=== PATIENT | female | born 1990 | race Caucasian/White ===

== ENCOUNTER 2019-06-22 11:37 | Emergency (ER) | payer OTHER ==
[2019-06-22 11:51] VITALS: TEMP 98
[2019-06-22] MEDS ORDERED: SODIUM CHLORIDE 0.9% 1,000 ML IV ONE (13:32)
[2019-06-22 13:34] LABS: Amorphous Sediment,Urine Few /hpf; Appearance,Urine Turbid (Clear); Bilirubin,Urine Negative (Negative); Blood,Urine Negative (Negative); Color,Urine Yellow; Glucose,Urine (UA) Negative (Negative); Ketones,Urine Negative (Negative); Leukocyte Esterase,Urine Small (Negative); Mucus,Urine Rare /hpf; Nitrite,Urine Negative (Negative); Protein,Urine Negative (Negative); Specific Gravity,Urine 1.018 (1.001-1.035); Squamous Epithelial Cell,Urine 7 /hpf (0-4); Urobilinogen,Urine <2.0 mg/dL (<2.0)
[2019-06-22 14:19] LABS: Basophils # (A) 0.1 k/uL (0-0.2); Basophils % (A) 1 %; Eosinophils # (A) 0.2 k/uL (0-0.7); Eosinophils % (A) 3 %; HCT 39.5 % (34.0-46.0); HGB 13.6 gm/dL (11.4-16.0); Lymphocytes # (A) 1.7 k/uL (1.0-4.8); Lymphocytes % (A) 28 %; MCH 32.6 pg (25.0-35.0); MCHC 34.3 g/dL (31.0-37.0); MCV 94.8 fL (80.0-100.0); Mean Platelet Volume 6.7; Monocytes # (A) 0.4 k/uL (0-1.0); Monocytes % (A) 7 %; Neutrophils # (A) 3.6 k/uL (1.3-7.7); Neutrophils % (A) 58 %; Platelet Count 248 k/uL (150-450); RBC 4.16 m/uL (3.80-5.40); RDW 12.8 % (11.5-15.5); WBC 6.1 k/uL (3.8-10.6)
[2019-06-22 14:26] LABS: ALT 31 U/L (9-52); AST 24 U/L (14-36); African American GFR (CKD) >90 (>60 ml/min/1.73 sqM); Albumin 4.1 g/dL (3.5-5.0); Alkaline Phosphatase 66 U/L (38-126); Anion Gap 8 mmol/L; Blood Urea Nitrogen 12 mg/dL (7-17); Calcium 9.4 mg/dL (8.4-10.2); Carbon Dioxide 25 mmol/L (22-30); Chloride 106 mmol/L (98-107); Glucose 95 mg/dL (74-99); Potassium 4.1 mmol/L (3.5-5.1); Sodium 139 mmol/L (137-145); Total Bilirubin 0.2 mg/dL (0.2-1.3); Total Protein 7.2 g/dL (6.3-8.2)
[2019-06-22 14:41] LABS: HCG,Quantitative Serum 148.9 mIU/mL
--- NOTE | 2019-06-22 14:49 | ED ---
Abdominal Pain HPI - General Chief Complaint: Abdominal Pain Stated Complaint: cramping early Time Seen by Provider: 06/22/19 13:23 Source: patient, RN notes reviewed, old records reviewed Mode of arrival: ambulatory Limitations: no limitations - History of Present Illness Initial Comments: Patient is 29-year-old female, female. She presents today approximately 4 weeks. Last menstrual period. She states that she had some abdominal cramping today. She is concerned that she fell last miscarriages. She denies any fluid loss or vaginal bleeding. - Related Data Home Medications Medication Instructions Recorded Confirmed No Known Home Medications 06/22/19 06/22/19 Allergies Allergy/AdvReac Type Severity Reaction Status Date / Time No Known Allergies Allergy Verified 06/22/19 13:17 Review of Systems ROS Statement: Those systems with pertinent positive or pertinent negative responses have been documented in the HPI. ROS Other: All systems not noted in ROS Statement are negative. Past Medical History Past Medical History: No Reported History History of Any Multi-Drug Resistant Organisms: None Reported Additional Past Surgical History / Comment(s): micro discectomy of spine x2 Past Psychological History: No Psychological Hx Reported Smoking Status: Current every day smoker Past Alcohol Use History: None Reported Past Drug Use History: None Reported General Exam - General Exam Comments Initial Comments: This is a 29 year old female, no distress. Limitations: no limitations General appearance: alert, in no apparent distress Head exam: Present: atraumatic, normocephalic, normal inspection Eye exam: Present: normal appearance, PERRL, EOMI. Absent: scleral icterus, conjunctival injection, periorbital swelling ENT exam: Present: normal exam, mucous membranes moist Neck exam: Present: normal inspection. Absent: tenderness, meningismus, lymphadenopathy Respiratory exam: Present: normal lung sounds bilaterally. Absent: respiratory distress, wheezes, rales, rhonchi, stridor Cardiovascular Exam: Present: regular rate, normal rhythm, normal heart sounds. Absent: systolic murmur, diastolic murmur, rubs, gallop, clicks GI/Abdominal exam: Present: soft, normal bowel sounds. Absent: distended, tenderness, guarding, rebound, rigid Neurological exam: Present: alert, oriented X3, CN II-XII intact Psychiatric exam: Present: normal affect, normal mood Skin exam: Present: warm, dry, intact, normal color. Absent: rash Course Vital Signs 06/22/19 06/22/19 11:45 16:38 Temperature 98 F Pulse Rate 83 70 Respiratory 18 16 Rate Blood Pressure 117/66 129/80 O2 Sat by Pulse 98 100 Oximetry Medical Decision Making - Medical Decision Making Patient is a 29 year old female presents to ED for abdominal cramping and early . Patient at this time has no vaginal bleeding or discharge. Patient has no fevers or other symptoms. Patient Rh positibe. Patient Hcg is low at 148. Discussed early or possible pseudogestational sac. Discussed that patient needs to follow up with OB. Patient case discussed with Dr. Miles. Patient will follow up on Thursday and repeat HCG before hand. PAtient understands treatment plan and will comply. - Lab Data Result diagrams: 06/22/19 13:50 06/22/19 13:50 Lab Results 06/22/19 06/22/19 06/22/19 Range/Units 13:00 13:50 13:50 WBC 6.1 (3.8-10.6) k/uL RBC 4.16 (3.80-5.40) m/uL Hgb 13.6 (11.4-16.0) gm/dL Hct 39.5 (34.0-46.0) % MCV 94.8 (80.0-100.0) fL MCH 32.6 (25.0-35.0) pg MCHC 34.3 (31.0-37.0) g/dL RDW 12.8 (11.5-15.5) % Plt Count 248 (150-450) k/uL Neutrophils % 58 % Lymphocytes % 28 % Monocytes % 7 % Eosinophils % 3 % Basophils % 1 % Neutrophils # 3.6 (1.3-7.7) k/uL Lymphocytes # 1.7 (1.0-4.8) k/uL Monocytes # 0.4 (0-1.0) k/uL Eosinophils # 0.2 (0-0.7) k/uL Basophils # 0.1 (0-0.2) k/uL Sodium 139 (137-145) mmol/L Potassium 4.1 (3.5-5.1) mmol/L Chloride 106 (98-107) mmol/L Carbon Dioxide 25 (22-30) mmol/L Anion Gap 8 mmol/L BUN 12 (7-17) mg/dL Creatinine 0.53 (0.52-1.04) mg/dL Est GFR (CKD-EPI)AfAm >90 (>60 ml/min/1.73 sqM) Est GFR (CKD-EPI)NonAf >90 (>60 ml/min/1.73 sqM) Glucose 95 (74-99) mg/dL Calcium 9.4 (8.4-10.2) mg/dL Total Bilirubin 0.2 (0.2-1.3) mg/dL AST 24 (14-36) U/L ALT 31 (9-52) U/L Alkaline Phosphatase 66 (38-126) U/L Total Protein 7.2 (6.3-8.2) g/dL Albumin 4.1 (3.5-5.0) g/dL HCG, Quant 148.9 mIU/mL Urine Color Yellow Urine Appearance Turbid H (Clear) Urine pH 7.0 (5.0-8.0) Ur Specific [place] 1.018 (1.001-1.035) Urine Protein Negative (Negative) Urine Glucose (UA) Negative (Negative) Urine Ketones Negative (Negative) Urine Blood Negative (Negative) Urine Nitrite Negative (Negative) Urine Bilirubin Negative (Negative) Urine Urobilinogen <2.0 (<2.0) mg/dL Ur Leukocyte Esterase Small H (Negative) Ur Squamous Epith Cells 7 H (0-4) /hpf Amorphous Sediment Few H (None) /hpf Urine Mucus Rare H (None) /hpf Blood Type Blood Type Recheck Bld Type Recheck Status 06/22/19 Range/Units 13:50 WBC (3.8-10.6) k/uL RBC (3.80-5.40) m/uL Hgb (11.4-16.0) gm/dL Hct (34.0-46.0) % MCV (80.0-100.0) fL MCH (25.0-35.0) pg MCHC (31.0-37.0) g/dL RDW (11.5-15.5) % Plt Count (150-450) k/uL Neutrophils % % Lymphocytes % % Monocytes % % Eosinophils % % Basophils % % Neutrophils # (1.3-7.7) k/uL Lymphocytes # (1.0-4.8) k/uL Monocytes # (0-1.0) k/uL Eosinophils # (0-0.7) k/uL Basophils # (0-0.2) k/uL Sodium (137-145) mmol/L Potassium (3.5-5.1) mmol/L Chloride (98-107) mmol/L Carbon Dioxide (22-30) mmol/L Anion Gap mmol/L BUN (7-17) mg/dL Creatinine (0.52-1.04) mg/dL Est GFR (CKD-EPI)AfAm (>60 ml/min/1.73 sqM) Est GFR (CKD-EPI)NonAf (>60 ml/min/1.73 sqM) Glucose (74-99) mg/dL Calcium (8.4-10.2) mg/dL Total Bilirubin (0.2-1.3) mg/dL AST (14-36) U/L ALT (9-52) U/L Alkaline Phosphatase (38-126) U/L Total Protein (6.3-8.2) g/dL Albumin (3.5-5.0) g/dL HCG, Quant mIU/mL Urine Color Urine Appearance (Clear) Urine pH (5.0-8.0) Ur Specific [place] (1.001-1.035) Urine Protein (Negative) Urine Glucose (UA) (Negative) Urine Ketones (Negative) Urine Blood (Negative) Urine Nitrite (Negative) Urine Bilirubin (Negative) Urine Urobilinogen (<2.0) mg/dL Ur Leukocyte Esterase (Negative) Ur Squamous Epith Cells (0-4) /hpf Amorphous Sediment (None) /hpf Urine Mucus (None) /hpf Blood Type O Positive Blood Type Recheck O Pos Bld Type Recheck Status No - Radiology Data Radiology results: report reviewed Ultrasound showed fluid-filled sac with an endometrium measuring 1 cm. No pole identified. Differential states includes normal related to his back. Since gestational sac of ectopic or missed . Correlate with hCG and ultrasound of clinically warranted. Disposition Clinical Impression: Abdominal pain affecting Disposition: HOME SELF-CARE Condition: Good Instructions (If sedation given, give patient instructions): Abdominal Pain in (ED) Additional Instructions: Patient was repeating her hCG levels. Please follow-up with Dr. Miles in 2 days. Patient should have her lab work drawn mid Zeeshan morning. Please return to the emergency room if your symptoms increase or worsen or for any other concerns. Is patient prescribed a controlled substance at d/c from ED?: No Referrals: Desirae Riddle MD [Primary Care Provider] - 1-2 days Rico Miles DO [Doctor of Osteopathic Medicine] - 1-2 days Time of Disposition: 16:07
--- NOTE | 2019-06-22 15:50 | US ---
EXAMINATION TYPE: Transabdominal DATE OF EXAM: 06/22/2019 3:31 PM COMPARISON: NONE CLINICAL HISTORY: early crampoing. Cramping EXAM PERFORMED: Transvaginal (TV) and Transabdominal (TA) EXAM MEASUREMENTS: GESTATIONAL AGE / DATING Physician Established: Not yet established ( Dates by LMP: (4 weeks/2 days) EDC: 02/27/2020 Dates by First Scan: No previous this is first scan Dates by Current Scan for: No IUP seen at this time MATERNAL ANATOMY Uterus: 8.8 x 3.5 x 5.6 cm Right Ovary: 3.5 x 2.6 x 2.8 cm Left Ovary: Obscured by bowel gas Post CDS / Adnexa: wnl Presence of free fluid: no Presence of corpus luteal cyst: Yes right 1.7 x 2.1 cm. Presence of subchorionic bleed: no GESTATION / SURVEY MSD: 1.03 cm (5 weeks/0 days) IUP: No IUP seen at this time Date of LMP: 05/27/2019 Beta HcG (if available): 148.9 IMPRESSION: There is a fluid-filled sac within the endometrium measuring 1 cm. No pole identified. Differential diagnosis includes a normal too early to detect, pseudogestational sac of ecto pic , or missed . Correlate with serial beta hCG and pelvic ultrasound as clinically warranted.
[2019-06-22 16:39] VITALS: BP 129/80; PULSE 70; RESP 16
== END 2019-06-22 16:38 | disposition home or self-care (01) ==
LOC: EC 11:37
DX: O99.89 Other specified diseases and conditions complicating pregnancy, childbirth and the puerperium (principal); R10.9 Unspecified abdominal pain; Z67.90 Unspecified blood type, Rh positive; O99.331 Smoking (tobacco) complicating pregnancy, first trimester; F17.200 Nicotine dependence, unspecified, uncomplicated; Z3A.01 Less than 8 weeks gestation of pregnancy
CPT/HCPCS: 36415; 76801; 76817; 80053; 81001; 84702; 85025; 86900; 86901; 96360; 99284

== ENCOUNTER → 2019-06-24 | Outpatient (CLI) | payer OTHER | END | disposition home or self-care (01) | LOC: LABWHC1 09:34 | PROVIDERS: ATTEND Physician Assistant Medical | DX: O20.0 Threatened abortion (principal) | CPT/HCPCS: 36415; 84702 ==

== ENCOUNTER → 2019-06-27 | Outpatient (CLI) | payer OTHER | END | disposition home or self-care (01) | LOC: LABWHC1 08:21 | PROVIDERS: ATTEND Obstetrics & Gynecology | DX: Z34.90 Encounter for supervision of normal pregnancy, unspecified, unspecified trimester (principal) | CPT/HCPCS: 36415; 84702 ==

== ENCOUNTER → 2019-07-15 | Outpatient (CLI) | payer OTHER ==
--- NOTE | 2019-07-15 14:27 | US ---
EXAMINATION TYPE: Transabdominal DATE OF EXAM: 07/15/2019 2:12 PM COMPARISON: US dated 06/22/2019 CLINICAL HISTORY: Z36 Confirm Dates. EXAM PERFORMED: Transvaginal (TV) and Transabdominal (TA) EXAM MEASUREMENTS: GESTATIONAL AGE / DATING Physician Established: Not yet established Dates by LMP: 05/23/2019 (7 weeks/4 days) EDC: 02/27/2020 Dates by First Scan: only gestational sac seen Dates by Current Scan for: gestational sac, yolk sac, and possible pole seen. Unable to detect heart tones - could be too early. MATERNAL ANATOMY Uterus: 10.6 x 5.7 x 6.1 cm Right Ovary: 2.8 x 2.5 x 2.3 cm Left Ovary: 2.7 x 2.4 x 1.7 cm Post CDS / Adnexa: wnl Presence of free fluid: none GESTATION / SURVEY CRL: 0.4 cm (6 weeks/1 days) MSD: not measured Date of LMP: 05/23/2019 Beta HcG (if available): drawn today Possible pole seen that measures 6weeks 1 day. This could represent normal early , how ever does not correlate with prior exam. Recommend follow up. Diffusely heterogenous myometrium. IMPRESSION: Intrauterine gestational sac and yolk sac are seen with questionable pole that jin ures approximately 6 weeks and 1 day. No heart tones are yet seen. Findings could represent ear ly normal intrauterine or demise. Follow-up pelvic ultrasound is again recommended in 5-7 days. Follow-up serial serum beta hCGs are also again recommended.
== END ==
LOC: RADUSWWP 13:40
PROVIDERS: ATTEND Obstetrics & Gynecology
DX: Z36.89 Encounter for other specified antenatal screening (principal); Z3A.01 Less than 8 weeks gestation of pregnancy
CPT/HCPCS: 76801; 76817

== ENCOUNTER → 2019-07-19 | Outpatient (CLI) | payer OTHER | END | disposition home or self-care (01) | LOC: LABWHC1 10:21 | PROVIDERS: ATTEND Obstetrics & Gynecology | DX: Z34.80 Encounter for supervision of other normal pregnancy, unspecified trimester (principal) | CPT/HCPCS: 36415; 84702 ==

== ENCOUNTER → 2019-07-22 | Outpatient (CLI) | payer OTHER | LOC: LABWHC1 08:25 | PROVIDERS: ATTEND Obstetrics & Gynecology | DX: O03.9 Complete or unspecified spontaneous abortion without complication (principal) | CPT/HCPCS: 36415; 84702 ==

== ENCOUNTER → 2019-07-27 | Outpatient (CLI) | payer OTHER ==
[2019-07-27 14:19] LABS: Basophils % (A) 0 %; Eosinophils # (A) 0.1 k/uL (0-0.7); Eosinophils % (A) 1 %; HCT 41.3 % (34.0-46.0); HGB 13.7 gm/dL (11.4-16.0); Lymphocytes # (A) 1.1 k/uL (1.0-4.8); Lymphocytes % (A) 12 %; MCH 32.4 pg (25.0-35.0); MCHC 33.2 g/dL (31.0-37.0); MCV 97.6 fL (80.0-100.0); Mean Platelet Volume 6.4; Monocytes # (A) 0.4 k/uL (0-1.0); Monocytes % (A) 4 %; Neutrophils # (A) 7.9 k/uL (1.3-7.7); Neutrophils % (A) 82 %; Platelet Count 250 k/uL (150-450); RBC 4.23 m/uL (3.80-5.40); RDW 12.2 % (11.5-15.5); WBC 9.6 k/uL (3.8-10.6)
== END | disposition home or self-care (01) ==
LOC: LABPAT 13:33
PROVIDERS: ATTEND Obstetrics & Gynecology
DX: Z01.812 Encounter for preprocedural laboratory examination (principal)
CPT/HCPCS: 36415; 85025

== ENCOUNTER 2019-07-28 04:03 | Emergency (ER) | payer OTHER ==
[2019-07-28 04:15] VITALS: TEMP 97.9
[2019-07-28] MEDS ORDERED: MORPHINE SULFATE 4 MG/ML SYRINGE IVP STA (04:33)
--- NOTE | 2019-07-28 04:40 | ED ---
Abdominal Pain HPI - General Chief Complaint: Abdominal Pain Stated Complaint: Abd pain Time Seen by Provider: 07/28/19 04:09 Source: patient Mode of arrival: wheelchair Limitations: no limitations - History of Present Illness Initial Comments: Genoveva is a 29 y.o. female since the emergency Department today with abdominal cramping and vaginal bleeding. Patient had an ultrasound on July 15 that showed a yolk sac but no pole, her serial beta hCGs have been decreasing she has followed up with gynecology with the plan for D&C later today. Patient reports that yesterday evening she began having stronger cramping and heavier bleeding. She tried to lie this throughout the night but this morning he became unbearable which time she had her bring her in the hospital for further evaluation. Patient reports that she is passing large clots and having severe cramping. She denies any fevers chills nausea vomiting chest pain lightheadedness or palpitations. - Related Data Home Medications Medication Instructions Recorded Confirmed Acetaminophen Tab [Tylenol Tab] 650 mg PO Q4H PRN 07/26/19 07/26/19 Allergies Allergy/AdvReac Type Severity Reaction Status Date / Time No Known Allergies Allergy Verified 07/28/19 04:14 Review of Systems ROS Statement: Those systems with pertinent positive or pertinent negative responses have been documented in the HPI. ROS Other: All systems not noted in ROS Statement are negative. Past Medical History Past Medical History: Osteoarthritis (OA) History of Any Multi-Drug Resistant Organisms: None Reported Past Surgical History: Back Surgery Additional Past Surgical History / Comment(s): Micro discectomy of spine X2. Past Anesthesia/Blood Transfusion Reactions: No Reported Reaction Past Psychological History: No Psychological Hx Reported Smoking Status: Current every day smoker Past Alcohol Use History: None Reported Past Drug Use History: None Reported - Past Family History Mother Family Medical History: Cancer Additional Family Medical History / Comment(s): Breast cancer. General Exam - General Exam Comments Initial Comments: Physical Exam GENERAL: Patient is well-developed and well-nourished. Patient is crying, holding her low abdomen HENT: Normocephalic, Atraumatic. EYES: PERRL, EOMI No conjunctival pallor PULMONARY: Unlabored respirations. No audible rales rhonchi or wheezing was noted. CARDIOVASCULAR: There is a regular rate and rhythm without any murmurs gallops or rubs. Warm and well perfused extremities ABDOMEN: Soft and nontender with normal bowel sounds. SKIN: Skin is clear with no lesions or rashes and otherwise unremarkable. No pallor : Normal external genitalia Dark blood in vault Cervix dilated to 1, dark clots in os clots continue to pass, dark bleeding noted, no bright red bleeding NEUROLOGIC: Patient is alert and oriented x3. Moving all extremities spontaneously MUSCULOSKELETAL: Normal extremities with adequate strength and full range of motion. No lower extremity swelling or edema. No calf tenderness. PSYCHIATRIC: Normal psychiatric evaluation. Limitations: no limitations Course Vital Signs 07/28/19 07/28/19 04:12 04:48 Temperature 97.9 F Pulse Rate 105 H 100 Respiratory 26 H 20 Rate Blood Pressure 135/75 116/72 O2 Sat by Pulse 100 98 Oximetry - Reevaluation(s) Reevaluation #1: Patient went to the restroom where she noted to pass a very large clot of tissue into the toilet 07/28/19 04:44 Reevaluation #2: Patient care was discussed with Dr. Garibay, he recommends the patient be discharged from the emergency department for admission in the outpatient surgical center for planned D&C despite having developed vaginal bleeding in the setting of a missed AB. 07/28/19 05:58 Medical Decision Making - Lab Data Result diagrams: 07/28/19 04:44 07/28/19 04:44 Lab Results 07/28/19 07/28/19 Range/Units 04:44 04:44 WBC 9.7 (3.8-10.6) k/uL RBC 4.28 (3.80-5.40) m/uL Hgb 13.9 (11.4-16.0) gm/dL Hct 41.6 (34.0-46.0) % MCV 97.3 (80.0-100.0) fL MCH 32.6 (25.0-35.0) pg MCHC 33.5 (31.0-37.0) g/dL RDW 12.5 (11.5-15.5) % Plt Count 267 (150-450) k/uL Neutrophils % 69 % Lymphocytes % 21 % Monocytes % 5 % Eosinophils % 3 % Basophils % 0 % Neutrophils # 6.7 (1.3-7.7) k/uL Lymphocytes # 2.0 (1.0-4.8) k/uL Monocytes # 0.5 (0-1.0) k/uL Eosinophils # 0.3 (0-0.7) k/uL Basophils # 0.0 (0-0.2) k/uL Sodium 138 (137-145) mmol/L Potassium 3.8 (3.5-5.1) mmol/L Chloride 107 (98-107) mmol/L Carbon Dioxide 23 (22-30) mmol/L Anion Gap 8 mmol/L BUN 8 (7-17) mg/dL Creatinine 0.55 (0.52-1.04) mg/dL Est GFR (CKD-EPI)AfAm >90 (>60 ml/min/1.73 sqM) Est GFR (CKD-EPI)NonAf >90 (>60 ml/min/1.73 sqM) Glucose 93 (74-99) mg/dL Calcium 9.2 (8.4-10.2) mg/dL Total Bilirubin 0.4 (0.2-1.3) mg/dL AST 24 (14-36) U/L ALT 24 (9-52) U/L Alkaline Phosphatase 67 (38-126) U/L Total Protein 7.4 (6.3-8.2) g/dL Albumin 4.3 (3.5-5.0) g/dL HCG, Quant 5467.5 mIU/mL Disposition Clinical Impression: Vaginal bleeding Disposition: HOME SELF-CARE Condition: Stable Additional Instructions: Patient to be discharged from the emergency department to present at outpatient surgical Center for planned D&C Is patient prescribed a controlled substance at d/c from ED?: No Referrals: Desirae Riddle MD [Primary Care Provider] - 1-2 days
[2019-07-28 04:49] VITALS: BP 116/72; PULSE 100; RESP 20
[2019-07-28 05:02] LABS: Basophils % (A) 0 %; Eosinophils # (A) 0.3 k/uL (0-0.7); Eosinophils % (A) 3 %; HCT 41.6 % (34.0-46.0); HGB 13.9 gm/dL (11.4-16.0); Lymphocytes % (A) 21 %; MCH 32.6 pg (25.0-35.0); MCHC 33.5 g/dL (31.0-37.0); MCV 97.3 fL (80.0-100.0); Mean Platelet Volume 5.9; Monocytes # (A) 0.5 k/uL (0-1.0); Monocytes % (A) 5 %; Neutrophils # (A) 6.7 k/uL (1.3-7.7); Neutrophils % (A) 69 %; Platelet Count 267 k/uL (150-450); RBC 4.28 m/uL (3.80-5.40); RDW 12.5 % (11.5-15.5); WBC 9.7 k/uL (3.8-10.6)
[2019-07-28] MEDS ORDERED: fentaNYL (PF) 50 MCG/ML 2 ML AMP IVP STA (05:15)
[2019-07-28 05:49] LABS: ALT 24 U/L (9-52); AST 24 U/L (14-36); African American GFR (CKD) >90 (>60 ml/min/1.73 sqM); Albumin 4.3 g/dL (3.5-5.0); Alkaline Phosphatase 67 U/L (38-126); Anion Gap 8 mmol/L; Blood Urea Nitrogen 8 mg/dL (7-17); Calcium 9.2 mg/dL (8.4-10.2); Carbon Dioxide 23 mmol/L (22-30); Chloride 107 mmol/L (98-107); Glucose 93 mg/dL (74-99); Non-African American GFR(CKD) >90 (>60 ml/min/1.73 sqM); Potassium 3.8 mmol/L (3.5-5.1); Sodium 138 mmol/L (137-145); Total Bilirubin 0.4 mg/dL (0.2-1.3); Total Protein 7.4 g/dL (6.3-8.2)
[2019-07-28 06:04] LABS: HCG,Quantitative Serum 5467.5 mIU/mL
== END 2019-07-28 06:22 | disposition home or self-care (01) ==
LOC: EC 04:03
DX: N93.9 Abnormal uterine and vaginal bleeding, unspecified (principal); R10.9 Unspecified abdominal pain; M19.90 Unspecified osteoarthritis, unspecified site; F17.200 Nicotine dependence, unspecified, uncomplicated
CPT/HCPCS: 36415; 80053; 85025; 84702; 99284; 96374; 96375; J2270; J3010

== ENCOUNTER 2019-07-28 06:24 | Day surgery (SDC) | payer OTHER ==
[2019-07-26 12:14] VITALS: BMI 36.8
--- NOTE | 2019-07-27 19:36 | P.HPOB ---
History of Present Illness H&P Date: 07/27/19 Chief Complaint: Missed This is a 29 y.o. female, 4, para 1, patient of Dr. Miles, who presents for suction dilatation and curettage due to missed . She has falling BHCG levels and has started to have some cramping and bleeding. She had some spotting on 07/25/2019 that did stop. She had an ultrasound on July 15 that showed a sac and yolk sac but no definite pole seen. Her beta- HCG level on July 15, 2019 was 14,021. It dropped to 13,744 on 07/19/2019 and then down to 10,836 on 07/22/2018. She would like a D&C at this point. She would like to have the tissue sent for chromosomal testing due to this is her third miscarriage in a row. She was advised to check her insurance policy to make sure this would be covered. Obstetrical history: . History of 1 vaginal delivery at term in 2008 . History of 2 recent miscarriages in August 2018 and December 2018. These were spontaneous miscarriages and did not require dilation and curettage. They were also very early on. Gynecologic history: She was recently treated for Trichomonas. Social history: She is . She works full-time in [employer]. Review of Systems Constitutional: Denies chills, Denies fever Eyes: denies blurred vision, denies pain Ears, nose, mouth and throat: Denies headache, Denies sore throat Cardiovascular: Denies chest pain, Denies shortness of breath Respiratory: Denies cough Gastrointestinal: Reports abdominal pain (Mild cramping) Genitourinary: Reports pelvic pain, Reports Musculoskeletal: Reports low back pain Integumentary: Denies pruritus, Denies rash Neurological: Denies numbness, Denies weakness Past Medical History Past Medical History: Osteoarthritis (OA) Additional Past Medical History / Comment(s): Back problems History of Any Multi-Drug Resistant Organisms: None Reported Past Surgical History: Back Surgery Additional Past Surgical History / Comment(s): Micro discectomy of spine X2. Past Anesthesia/Blood Transfusion Reactions: No Reported Reaction Past Psychological History: No Psychological Hx Reported Smoking Status: Current every day smoker Past Alcohol Use History: None Reported Additional Past Alcohol Use History / Comment(s): Has been smoking 11 yrs, <1/2 PPD. Past Drug Use History: None Reported - Past Family History Mother Family Medical History: Cancer Additional Family Medical History / Comment(s): Breast cancer. Medications and Allergies Home Medications Medication Instructions Recorded Confirmed Type Acetaminophen Tab [Tylenol Tab] 650 mg PO Q4H PRN 07/26/19 07/26/19 History Allergies Allergy/AdvReac Type Severity Reaction Status Date / Time No Known Allergies Allergy Verified 07/26/19 12:15 Exam Osteopathic Statement: *. No significant issues noted on an osteopathic structural exam other than those noted in the History and Physical/Consult. HEENT: Within normal limits Heart: Regular rate and rhythm Lungs: Clear to auscultation bilaterally Abdomen: Pelvic exam: Uterus is small, mid position, nontender with no adnexal masses palpated. Extremities: Negative Homans Assessment and Plan (1) Missed Status: Acute Code(s): O02.1 - MISSED SNOMED Code(s): 79716422 Plan: Proceed with suction dilation and curettage. Patient does want specimen sent for chromosomal analysis. I have discussed the risks, benefits, and alternative therapies for the above- mentioned procedure and for both sedation/anesthesia as well as necessary blood products administration, if indicated, as they pertain to this patient. The patient has indicated her understanding and acceptance of the risks and procedures discussed.
[~2019-07-28 06:24] MED LIST: DEXAMETHASONE SOD PHOSPHATE 10 MG/ML 1 ML VIAL IV ONE; HYDROmorphone 0.5 MG/0.5 ML SYRINGE IVP PRN; LACTATED RINGERS 1,000 ML IV SCH; ONDANSETRON 4 MG/2 ML VIAL IVP ONE; Pre Op ABX Message 1 EACH MISC MISCELLANE ONE
[2019-07-28] MEDS ORDERED: fentaNYL (PF) 50 MCG/ML 2 ML AMP IV ONE (06:45)
[2019-07-28] MEDS ORDERED: fentaNYL (PF) 50 MCG/ML 2 ML AMP IVP ONE (07:00)
[2019-07-28] MEDS ORDERED: MIDAZOLAM 2 MG/2 ML VIAL ONE (07:27)
[2019-07-28] MEDS ORDERED: LIDOCAINE 1% INJ 10MG/ML (20 ML MDV) ONE (07:27)
[2019-07-28] MEDS ORDERED: SUCCINYLCHOLINE CHLORIDE 100 MG/5 ML SYR IV ONE (07:27)
[2019-07-28] MEDS ORDERED: GLYCOPYRROLATE 0.2 MG/ML 2 ML VIAL ONE (07:27)
[2019-07-28] MEDS ORDERED: PROPOFOL 10 MG/ML 20 ML VIAL IV ONE (07:27)
[2019-07-28] MEDS ORDERED: KETOROLAC 30 MG/ML 1 ML VIAL ONE (07:27)
[2019-07-28] MEDS ORDERED: fentaNYL (PF) 50 MCG/ML 2 ML AMP ONE (07:27)
--- NOTE | 2019-07-28 07:56 | P.OP ---
Date of Procedure: 07/28/19 Preoperative Diagnosis: Missed Recurrent miscarriage Postoperative Diagnosis: Same Procedure(s) Performed: Suction dilation and curettage Anesthesia: SABRINA Surgeon: Senia Ureña Estimated Blood Loss (ml): 10 Pathology: other (Products of conception to be sent for chromosomal studies.) Condition: stable Disposition: same day Indications for Procedure: This is a 29 y.o. female, 4, para 1, patient of Dr. Miles, who presents for suction dilatation and curettage due to missed . She has falling BHCG levels and has started to have some cramping and bleeding. She had some spotting on 07/25/2019 that did stop. She had an ultrasound on July 15 that showed a sac and yolk sac but no definite pole seen. Her beta- HCG level on July 15, 2019 was 14,021. It dropped to 13,744 on 07/19/2019 and then down to 10,836 on 07/22/2018. She would like a D&C at this point. She would like to have the tissue sent for chromosomal testing due to this is her third miscarriage in a row. She was advised to check her insurance policy to make sure this would be covered. This morning the patient states that she went to the emergency room early this morning due to bleeding and cramping. She did pass some tissue at home. She is still having some bleeding and cramping and therefore is continuing to go for a D&C today. Operative Findings: Uterus is mid to retroverted position, sounded to 10 cm. Some blood clot is noted within the vagina. A minimal amount of products of conception are obtained. Description of Procedure: The patient is taken to the operating room she's placed in the dorsal lithotomy position. She is prepped and draped in the normal sterile fashion. Her bladder is drained with a catheter and then removed. Examination is performed under anesthesia. Uterus is found to be mid to retroverted position, slightly enlarged, with no adnexal masses palpated. A weighted speculum was placed in the patient's vagina and a right angle retractor is used to visualize the cervix. The anterior lip of the cervix is grasped with a single-tooth tenaculum. The uterus is sounded to 10 cm. Cervix is gently dilated with Benoit dilators. Next a 9 mm curved suction curet is placed and suction curettage was performed with a minimal amount of tissue obtained. Next a medium-size to large curet was used to gently cauterize the endometrium. No further tissue was obtained. The suction curet was performed one further time to remove any blood clots. A small rinsed with saline was used to rinse the tubing. Next the single-tooth tenaculum was removed. No active bleeding was noted. All instruments are removed from the vagina. All sponge counts are correct. The specimen will be sent to pathology for chromosomal studies due to her history of recurrent miscarriage.
[2019-07-28 08:06] VITALS: TEMP 97.5
[2019-07-28 08:55] VITALS: RESP 18
[2019-07-28 09:34] VITALS: BP 100/63; PULSE 47
== END 2019-07-28 09:48 | disposition home or self-care (01) ==
LOC: OR 06:24
PROVIDERS: ATTEND Obstetrics & Gynecology
DX: O02.1 Missed abortion (principal); N96 Recurrent pregnancy loss; F17.210 Nicotine dependence, cigarettes, uncomplicated; Z79.899 Other long term (current) drug therapy
CPT/HCPCS: 86900; 86901; 88305; 86850; 59820; J2250; J1100; J2405; J2001; J3010; J1885; J0330; J2704

== ENCOUNTER → 2019-12-13 | Outpatient (CLI) | payer OTHER ==
--- NOTE | 2019-12-13 16:06 | US ---
EXAMINATION TYPE: Transabdominal DATE OF EXAM: 12/13/2019 3:38 PM COMPARISON: NONE CLINICAL HISTORY: Z36 CONFIRM DATES. Smoker, EXAM PERFORMED: Transabdominal (TA) EXAM MEASUREMENTS: GESTATIONAL AGE / DATING Physician Established: ( 9weeks/4 days) EDC: 07/13/2020 Dates by LMP: (9 weeks/4 days) EDC: 07/13/2020 Dates by First Scan: No previous. Dates by Current Scan for: (9 weeks/1 day) EDC: 07/13/2020 MATERNAL ANATOMY Uterus: 13.0 x 7.1 x 6.3cm Right Ovary: 2.4 x 2.9 x 1.6cm Left Ovary: 3.1 x 3.2 x 3.0cm Post CDS / Adnexa: wnl Presence of free fluid: no Presence of corpus luteal cyst: in left ovary = 1.8 x 1.4 x 1.4cm Presence of subchorionic bleed: no GESTATION / SURVEY CRL: 2.4cm (9 weeks/1 day) Yolk Sac (normal less than 6mm): 4.2mm Heart Rate: 175 bpm Rhythm: Normal IUP: Viable IUP Date of LMP: 10/07/2019 Beta HcG (if available): NA Single, live IUP, 9 weeks/1 day, EDC: 07/13/2020, [id number]. IMPRESSION: Single live intrauterine has a sonographic age of 9 weeks and 1 day and estimat ed date of delivery of 07/13/2020, concordant with physician established dates and menstrual age.
== END | disposition home or self-care (01) ==
LOC: RADUSWWP 15:15
PROVIDERS: ATTEND Obstetrics & Gynecology
DX: Z36.87 Encounter for antenatal screening for uncertain dates (principal); Z3A.09 9 weeks gestation of pregnancy
CPT/HCPCS: 76801

== ENCOUNTER 2020-03-15 17:05 | Observation (INO) | payer OTHER ==
[2020-03-15] MEDS ORDERED: ACETAMINOPHEN IV (For NPO) 1,000 MG in EMPTY BAG 1 BAG IVPB STA (17:17)
[2020-03-15 17:27] VITALS: BP 137/68; PULSE 84; RESP 15; TEMP 97.7
[2020-03-15 17:35] LABS: Appearance,Urine Cloudy (Clear); Bilirubin,Urine Negative (Negative); Blood,Urine Trace (Negative); Color,Urine Yellow; Glucose,Urine (UA) Negative (Negative); Ketones,Urine Negative (Negative); Leukocyte Esterase,Urine Trace (Negative); Mucus,Urine Many /hpf; Nitrite,Urine Negative (Negative); Protein,Urine Trace (Negative); RBC,Urine 9 /hpf (0-5); Specific Gravity,Urine 1.027 (1.001-1.035); Squamous Epithelial Cell,Urine 18 /hpf (0-4); WBC,Urine 2 /hpf (0-5)
[2020-03-15] MEDS: LACTATED RINGERS 1,000 ML IV SCH ×2 (17:37→18:37)
[2020-03-15 17:39] LABS: Basophils % (A) 0 %; Eosinophils # (A) 0.3 k/uL (0-0.7); Eosinophils % (A) 3 %; HCT 36.2 % (34.0-46.0); HGB 12.5 gm/dL (11.4-16.0); Lymphocytes # (A) 1.8 k/uL (1.0-4.8); Lymphocytes % (A) 20 %; MCH 33.2 pg (25.0-35.0); MCHC 34.6 g/dL (31.0-37.0); Mean Platelet Volume 7.6; Monocytes # (A) 0.4 k/uL (0-1.0); Monocytes % (A) 4 %; Neutrophils # (A) 6.4 k/uL (1.3-7.7); Neutrophils % (A) 71 %; Platelet Count 223 k/uL (150-450); RBC 3.77 m/uL (3.80-5.40)
[2020-03-15 17:52] LABS: ALT 19 U/L (4-34); AST 44 U/L (14-36); African American GFR (CKD) >90 (>60 ml/min/1.73 sqM); Albumin 3.6 g/dL (3.5-5.0); Alkaline Phosphatase 59 U/L (38-126); Anion Gap 5 mmol/L; Blood Urea Nitrogen 6 mg/dL (7-17); Carbon Dioxide 19 mmol/L (22-30); Chloride 110 mmol/L (98-107); Glucose 98 mg/dL (74-99); Non-African American GFR(CKD) >90 (>60 ml/min/1.73 sqM); Potassium 5.4 mmol/L (3.5-5.1); Sodium 134 mmol/L (137-145); Total Bilirubin 0.7 mg/dL (0.2-1.3); Total Protein 6.8 g/dL (6.3-8.2)
[2020-03-15] MEDS ORDERED: BUTORPHANOL 1 MG/ML 1 ML VIAL IV PRN (18:23)
--- NOTE | 2020-03-15 19:12 | US ---
EXAMINATION TYPE: US renals and bladder DATE OF EXAM: 03/15/2020 COMPARISON: NONE CLINICAL HISTORY: Right sided flank pain. Right-sided pain x 1 day. No hx of kidney stones. Patient i s 23 weeks . EXAM MEASUREMENTS: Right Kidney: 12.9 x 5.1 x 7.3 cm Left Kidney: 12.4 x 6.8 x 5.9 cm *Limited due to body habitus and overlying bowel gas. Right Kidney: Measures slightly enlarged. No hydronephrosis or masses seen Left Kidney: Measures upper limits of normal versus slightly enlarged. No hydronephrosis or masses se en Bladder: Limited evaluation, not fully distended. Bilateral Jets seen: Yes IMPRESSION: No evidence of renal mass or obstruction. There are bilateral ureteral jets in the urinary bladder. N o hydronephrosis.
[2020-03-15] MEDS ORDERED: LACTATED RINGERS 1,000 ML IV SCH (19:15)
[2020-03-15] MEDS ORDERED: Acetaminophen-Codeine 300-30mg TAB PO PRN (19:59)
--- NOTE | 2020-03-23 11:43 | P.MSEPDOC ---
Presenting Problems - Arrival Data Date of Arrival on Unit: 03/15/20 Time of Arrival on Unit: 17:05 Mode of Transport: Portable - Complaint OB-Reason for Admission/Chief Complaint: Pain Comment: Pt states right flank pain that started last night and got worse around 1600 today Medical History - Information : 5 Para: 1 Term: 1 : 0 Abortions: Spontaneous or Elective: 3 Number of Living Children: 1 - Gestational Age Gestational Age by SUGAR (wks/days): 22 Weeks and 6 Days - History Complications: Smoker Review of Systems - Review of Systems Constitutional: No problems Breast: No problems ENT: No problems Cardiovascular: No problems Respiratory: No problems Gastrointestinal: No problems Genitourinary: No problems Musculoskeletal: No problems Neurological: No problems Skin: No problems Vital Signs - Temperature Temperature: 97.7 F Temperature Source: Temporal Artery Scan - Pulse Pulse Oximetery Pulse Rate: 84 Pulse Assessment Method: Automatic Cuff - Respirations Respiratory Rate: 15 Oxygen Delivery Method: Room Air O2 Sat by Pulse Oximetry: 95 - Blood Pressure Right Arm Blood Pressure: 137/68 Blood Pressure Mean: 91 Blood Pressure Source: Automatic Cuff Medical Screen Scoring (Pre) - Cervical Exam Dilation: Exam Deferred Effacement: Exam Deferred Membranes: Intact - Uterine Contractions Frequency: N/A Duration: N/A Intensity: N/A - Maternal Vital Signs Maternal Temperature: N/A Maternal Blood Pressure: N/A Signs of Preeclampsia: N/A Maternal Respirations: N/A - Maternal Trauma Maternal Trauma: N/A - Assessment - Baby A Position: N/A Station: N/A - Total Score - Baby A Total Score - Baby A: 0 - Total Score - Baby B Total Score - Baby B: 0 - Total Score - Baby C Total Score - Baby C: 0 - Level of Risk - Baby A Level of Risk - Baby A: Low (0-5) - Level of Risk - Baby B Level of Risk - Baby B: Low (0-5) - Level of Risk - Baby C Level of Risk - Baby C: Low (0-5) Physician Notification (Pre) - Physician Notified Physician Notified Date: 03/15/20 Physician Notified Time: 17:15 New Order Received: Yes Disposition - Disposition OB Disposition: Admit, LDRP Suite Discharge Date: 03/15/20 Discharge Time: 21:00 I agree with the RN Medical Screening Exam: Yes Risk & Benefit of care provided described in d/c instruction: Yes Diagnosis: HEADACHE
== END 2020-03-15 21:00 | disposition home or self-care (01) ==
LOC: FBPOP 17:05 → 4FBP 19:11
PROVIDERS: ADMIT Obstetrics & Gynecology Obstetrics; ATTEND Obstetrics & Gynecology Obstetrics
DX: R10.9 Unspecified abdominal pain (principal); R10.2 Pelvic and perineal pain; Z3A.22 22 weeks gestation of pregnancy
CPT/HCPCS: 96361; 96365; 96366; 96375; 80053; 85025; 81001; 76770; G0463; G0378; J0595; J0690; J0131; 99214

== ENCOUNTER 2020-06-07 09:54 | Observation (INO) | payer OTHER ==
[2020-06-07] MEDS ORDERED: BUTORPHANOL 1 MG/ML 1 ML VIAL IV PRN (10:18)
[2020-06-07] MEDS ORDERED: ONDANSETRON 4 MG/2 ML VIAL IVP STA (10:19)
[2020-06-07] MEDS: LACTATED RINGERS 1,000 ML IV SCH ×5 (10:32→20:07)
[2020-06-07 10:38] LABS: Amorphous Sediment,Urine Occasional /hpf; Appearance,Urine Turbid (Clear); Bilirubin,Urine Negative (Negative); Blood,Urine Large (Negative); Color,Urine Yellow; Glucose,Urine (UA) Negative (Negative); Ketones,Urine Negative (Negative); Leukocyte Esterase,Urine Negative (Negative); Mucus,Urine Few /hpf; Nitrite,Urine Negative (Negative); Protein,Urine Trace (Negative); RBC,Urine >182 /hpf (0-5); Squamous Epithelial Cell,Urine 3 /hpf (0-4); Urobilinogen,Urine <2.0 mg/dL (<2.0); WBC,Urine 2 /hpf (0-5)
[2020-06-07] MEDS ORDERED: NALOXONE 0.4 MG/ML 1 ML VIAL IV PRN (11:03)
[2020-06-07] MEDS ORDERED: ACETAMINOPHEN IV (For NPO) 1,000 MG in EMPTY BAG 1 BAG IVPB STA (11:05)
[2020-06-07] MEDS: HYDROmorphone PCA 10 MG/50 ML BAG IV PRN (11:36)
[2020-06-07] MEDS ORDERED: diphenhydrAMINE 50 MG/ML 1 ML VIAL IVP STA (14:02)
--- NOTE | 2020-06-07 16:23 | US ---
EXAMINATION TYPE: US renals and bladder DATE OF EXAM: 06/07/2020 COMPARISON: US 03/15/20 CLINICAL HISTORY: Left Flank Pain x 1 day. 35 weeks . EXAM MEASUREMENTS: Right Kidney: 13.7 x 5.2 x 6.0 cm Left Kidney: 13.1 x 6.9 x 6.5 cm Right Kidney: No hydronephrosis or masses seen; Size appears mildly enlarged Left Kidney: Mild to moderate hydronephrosis seen on current study From prior; no masses seen; Size appears upper limits of normal Bladder: Not visualized due to patient voiding prior to US and 35 weeks preg. Bilateral Jets seen: No IMPRESSION: New mild to moderate left-sided hydronephrosis is present on current study.
--- NOTE | 2020-06-07 17:08 | P.HPOB ---
History of Present Illness H&P Date: 06/07/20 Chief Complaint: 34-6/7 weeks, acute pain with left nephrolithiasis The patient is a 29-year-old 5 para 1031 admitted at 34-6/7 weeks as established by last menstrual period and confirmed by 9 week ultrasound. She presents to triage with acute onset of left flank pain which is excruciating in nature. Pain began today and she has 1 previous episode of similar pain which resolved on its own. Urinalysis is consistent with the diagnosis with significant amount of red blood cells present with no contamination and no evidence of infection present. The patient is afebrile but does have some nausea and vomiting as well. Use of a SCUBA DIVING INSTRUCTOR has failed to relieve the pain in any significant way. Urology consultation has been sought and renal ultrasound demonstrates mild to moderate left hydronephrosis with no other findings. No stone was visualized. Obstetrical history: 5 para 1031 with 1 previous term delivery without complications. She additionally had 3 early miscarriages, 1 with D&C. Current statistics are listed in history present illness. EDC of 07/13/2020 was established by last menstrual period and confirmed by 9 week ultrasound. Laboratory workup demonstrates a blood type of O+ with a negative antibody screen. Rubella status is immune. The remainder of the laboratory workup is within normal limits. Early Glucola as well as second trimester Glucola were both within normal limits. Group B strep status has not yet been determined. Gynecologic history: Unremarkable with no apparent history of infections to include STDs. Review of Systems Review of systems is confined to history of present illness. Past Medical History Past Medical History: Osteoarthritis (OA) History of Any Multi-Drug Resistant Organisms: None Reported Past Surgical History: Back Surgery Additional Past Surgical History / Comment(s): Micro discectomy of spine X2. Past Anesthesia/Blood Transfusion Reactions: No Reported Reaction Smoking Status: Current every day smoker - Past Family History Mother Family Medical History: Cancer Additional Family Medical History / Comment(s): Breast cancer. Medications and Allergies Home Medications Medication Instructions Recorded Confirmed Type Pantoprazole Sodium [Protonix] 20 mg PO DAILY PRN 03/15/20 06/07/20 History 114/Iron A-G/Folate 1 1 each PO DAILY 03/15/20 06/07/20 History [Prenate Elite Tablet] Allergies Allergy/AdvReac Type Severity Reaction Status Date / Time No Known Allergies Allergy Verified 06/07/20 10:02 Exam Vital Signs Temp Pulse Resp BP Pulse Ox 06/07/20 10:30 97.2 F L 113 H 20 120/90 97 Intake and Output 06/07/20 06/07/20 06/07/20 06:59 14:59 22:59 Output Total 200 150 Balance -200 -150 Output: Urine 200 150 Other: Weight 108.862 kg In general, this is a well-developed, moderately obese white female in significant discomfort. Her heart has a regular rhythm and rate without murmur. Her lungs are clear to auscultation bilaterally in all whaley. Her abdomen is gravid, nondistended, soft, nontender, and without palpable masses aside from uterine fundus. Her extremities without any cyanosis, clubbing, or edema and are nontender to palpation. The patient does have exquisite left flank pain. Results Abnormal Lab Results - Last 24 Hours (Table) 06/07/20 Range/Units 10:15 Urine Appearance Turbid H (Clear) Urine Protein Trace H (Negative) Urine Blood Large H (Negative) Urine RBC >182 H (0-5) /hpf Amorphous Sediment Occasional H (None) /hpf Urine Mucus Few H (None) /hpf Assessment and Plan (1) Nephrolithiasis Current Visit: Yes Status: Acute Code(s): N20.0 - CALCULUS OF KIDNEY SNOMED Code(s): 80114638 (2) 35 weeks gestation of Current Visit: Yes Status: Acute Code(s): Z3A.35 - 35 WEEKS GESTATION OF SNOMED Code(s): 23217041 Plan: The patient has been admitted for aggressive IV hydration as well as pain control. She appears to have no specific concerns with a reassuring, category 1 heart rate tracing. Urology has been consulted. Ultrasound to this point has shown only left hydronephrosis. There was certainly be some consideration for a one-shot IVP to attempt to locate a stone in order to make lithotripsy a possibility versus the option of perhaps placing a stent. We will leave this in the hands of urology. She otherwise has been placed on bedrest with bathroom privileges and a regular diet as tolerated pending consultation from urology. Continue Dilaudid SCUBA DIVING INSTRUCTOR for pain control, consider O firming of again should her pain continue to be unrelenting.
[2020-06-07] MEDS ORDERED: ONDANSETRON 4 MG/2 ML VIAL IVP PRN (17:15)
[2020-06-07] MEDS ORDERED: FAMOTIDINE 20 MG/2 ML VIAL IV SCH (17:15)
[2020-06-07] MEDS ORDERED: ACETAMINOPHEN IV (For NPO) 1,000 MG in EMPTY BAG 1 BAG IVPB ONE (19:39)
[2020-06-07 20:24] LABS: Amphetamine Screen,Urine Not Detected (NotDetected); Barbiturate Screen,Urine Not Detected (NotDetected); Benzodiazepines Screen,Urine Not Detected (NotDetected); Cocaine Screen,Urine Not Detected (NotDetected); Methadone Screen, Urine Not Detected (NotDetected); Opiate Screen,Urine Not Detected (NotDetected); Oxycodone Screen, Urine Not Detected (NotDetected); Phencyclidine Screen,Urine Not Detected (NotDetected); Tricyclic Antidepressant,Urine Not Detected (NotDetected); Urn Cannabinoid Scrn Not Detected (NotDetected)
[2020-06-07 20:38] VITALS: RESP 16
[2020-06-07] MEDS: diphenhydrAMINE 50 MG/ML 1 ML VIAL IVP PRN (23:13)
[2020-06-08] MEDS ORDERED: ACETAMINOPHEN IV (For NPO) 1,000 MG in EMPTY BAG 1 BAG IVPB PRN (04:00)
[2020-06-08] MEDS: diphenhydrAMINE 50 MG/ML 1 ML VIAL IVP PRN (04:17)
[2020-06-08] MEDS: LACTATED RINGERS 1,000 ML IV SCH (04:18)
[2020-06-08] MEDS: HYDROmorphone PCA 10 MG/50 ML BAG IV PRN (08:19)
[2020-06-08 08:47] VITALS: BP 127/69; PULSE 96; TEMP 98.7
[2020-06-08] MEDS ORDERED: HYDROcodone/APAP 5-325MG 1 EACH TAB PO PRN ×2 (10:43)
--- NOTE | 2020-06-08 10:46 | P.PN ---
Subjective Progress Note Date: 06/08/20 Principal diagnosis: 35-0/7 weeks, presumptive left nephrolithiasis The patient reports significant improvement in pain since last evening. She has been somewhat nauseated using the Dilaudid and has expressed a desire to try to go home as her pain has improved. She does otherwise tolerate a regular diet and liquids. activity is normal. She has been seen by urology with options offered and the decision was made to carry on with aggressive IV hydration and pain control. Objective - Vital Signs Vital signs: Vital Signs Temp 98.7 F 06/08/20 08:00 Pulse 96 06/08/20 08:00 Resp 16 06/08/20 08:00 BP 127/69 06/08/20 08:00 Pulse Ox 97 06/07/20 10:30 Intake & Output 06/07/20 06/08/20 06/08/20 18:59 06:59 18:59 Output Total 350 Balance -350 Weight 108.862 kg 108.862 kg Output: Urine 350 Other: # Voids 1 - Exam In general, this is a well-developed, moderately obese white female in significantly less distress. Her heart has a regular rhythm and rate without murmur. Her lungs clear to auscultation bilateral whaley. Her abdomen is gravid, soft, nontender, and without any masses aside from uterine fundus. Her extremities are without any cyanosis, clubbing, or edema and are nontender to palpation bilaterally. Her left flank pain is minimal at this point. Assessment and Plan (1) Nephrolithiasis Current Visit: Yes Status: Acute Code(s): N20.0 - CALCULUS OF KIDNEY SNOMED Code(s): 59362962 (2) 35 weeks gestation of Current Visit: Yes Status: Acute Code(s): Z3A.35 - 35 WEEKS GESTATION OF SNOMED Code(s): 77820651 Plan: We will discontinue the RV SERVICER in favor of oral pain medications. [place] has been ordered and a prescription written should the patient be successful with oral management of pain control. I have strongly encouraged her to continue to hydrate aggressively and to ambulate regularly. She does have a follow-up appointment next week with me and understands all the concerns. I have additionally reassured her that, should it become necessary, use of x-ray is not contraindicated at 35 weeks of gestation.
--- NOTE | 2020-06-08 11:24 | P.GSCN ---
History of Present Illness Consult date: 06/08/20 Reason for Consult: Possible kidney stone History of present illness: The patient is a 29-year-old female who is and due on 07/13/2020. She developed the abrupt onset of left flank pain yesterday morning. The pain was associated with nausea and vomiting. Later in the day the pain began radiating into the left lower quadrant and was associated with an increased urgency to void. The patient was admitted for pain control yesterday and continued to have intermittent pain which she feels is slightly improved from yesterday. She's had no gross hematuria but a urinalysis did confirm microscopic hematuria. Renal ultrasound hesterday showed mild to moderate left hydronephrosis. No renal or ureteral calculi were identified. Patient has no previous history of urolithiasis and there is no family history of kidney stones. She was admitted to this hospital in 02/2020 with right flank pain and suspected to have a stone at that time but a renal ultrasound showed no hydronephrosis or renal calculi. She has a history of chronic back and left leg pain which she says has been worse recently. Review of Systems - Constitutional Reports chronic pain, Denies chills, Denies fever - Cardiovascular Denies high blood pressure, Denies shortness of breath - Gastrointestinal Reports as per HPI, Denies constipation - Genitourinary Genitourinary: Reports as per HPI, Reports urgency, Reports urinary frequency, Denies dysuria Past Medical History Past Medical History: Osteoarthritis (OA) History of Any Multi-Drug Resistant Organisms: None Reported Past Surgical History: Back Surgery Additional Past Surgical History / Comment(s): Micro discectomy of spine X2. Past Anesthesia/Blood Transfusion Reactions: No Reported Reaction Past Psychological History: No Psychological Hx Reported Smoking Status: Current every day smoker Past Alcohol Use History: None Reported Additional Past Alcohol Use History / Comment(s): Has been smoking 11 yrs, <1/2 PPD. Past Drug Use History: None Reported - Past Family History Mother Family Medical History: Cancer Additional Family Medical History / Comment(s): Breast cancer. Medications and Allergies Home Medications Medication Instructions Recorded Confirmed Type Pantoprazole Sodium [Protonix] 20 mg PO DAILY PRN 03/15/20 06/07/20 History 114/Iron A-G/Folate 1 1 each PO DAILY 03/15/20 06/07/20 History [Prenate Elite Tablet] Allergies Allergy/AdvReac Type Severity Reaction Status Date / Time No Known Allergies Allergy Verified 06/07/20 10:02 Surgical - Exam Vital Signs Temp Pulse Resp BP Pulse Ox 97.2 F L 113 H 20 120/90 97 06/07/20 10:30 06/07/20 10:30 06/07/20 10:30 06/07/20 10:30 06/07/20 10:30 - General well developed, well nourished, obese - ENT no hearing loss - Respiratory normal respiratory effort - Abdomen Abdomen: soft, tender (left flank), masses (suprapubic mass consistent with gravid uterus) Results - Imaging US - kidney/bladder: image reviewed Assessment and Plan Assessment: I explained to the patient and her that her pain, hematuria and left hydronephrosis are consistent with passage of a left ureteral calculus. Her recent left lower quadrant pain and increased urgency suggest that the calculus could be in the distal ureter. I discussed the pros and cons of proceeding with a limited IVP for confirmation of a calculus versus continued observation. At the present time the patient would prefer the latter. If her pain worsens than a limited IVP could be considered and depending on the results either placement of a double-J catheter or left ureteroscopy with lithotripsy might then the options.
--- NOTE | 2020-06-14 19:23 | P.DS ---
Providers Date of admission: 06/07/20 11:05 Expected date of discharge: 06/08/20 Attending physician: Cooper Gallegos Consults: 06/07/20 14:28 Consult Physician Stat Consulting Provider: Cristopher Ayala Consult Reason/Comments: kidney stones and severe pain Do you want consulting provider notified?: Already Contacted Primary care physician: Stated None - Discharge Diagnosis(es) (1) Nephrolithiasis Status: Acute (2) 35 weeks gestation of Status: Acute Hospital Course: The patient is a 29-year-old 5 para 1031 admitted at 34-6/7 weeks by good dating parameters. She presented to triage with acute left flank pain which is excruciating in nature and was diagnosed with left nephrolithiasis. She was admitted for IV hydration and IV pain control. A Dilaudid SLASHER TENDER HELPER was started and urology consultation sought. The patient continued to have significant waxing and waning of her pain for approximately 24 hours after which time the pain significantly resolved. She was able to be changed to oral pain medications which she tolerated and was deemed stable for discharge on hospital day #2 to follow-up in the office as previously scheduled. status was reassuring throughout with category 1 tracings on each NST. She was discharged home and instructed to continue aggressive oral hydration and to call for any significant increase in pain or inability to tolerate liquids by mouth. She is additionally instructed to call for any concerns. She understood her instructions and agrees to follow up as noted above. Discharge medications included a prescription for [place] 5/325 mg, 1-2 by mouth every 6 hours when necessary pain, #20 dispensed with no refills. She was otherwise to use [id number] analgesic pain medications to include Tylenol not to exceed the recommended daily dosage. Procedures: #1. IV hydration #2. IV pain control #3. Urology consultation #4. Renal ultrasound Patient Condition at Discharge: Stable Plan - Discharge Summary New Discharge Prescriptions: No Action Pantoprazole Sodium [Protonix] 20 mg PO DAILY PRN PRN Reason: heartburn 114/Iron A-G/Folate 1 [Prenate Elite Tablet] 1 each PO DAILY Discharge Medication List Pantoprazole Sodium [Protonix] 20 mg PO DAILY PRN 03/15/20 [History] 114/Iron A-G/Folate 1 [Prenate Elite Tablet] 1 each PO DAILY 03/15/20 [History] Discharge Disposition: HOME SELF-CARE
== END 2020-06-08 15:30 | disposition home or self-care (01) ==
LOC: FBPOP 09:54 → 4FBP 11:05 → INTOOBSV 11:05 → OBSVTOIN 11:05 → UNDODISIN 06-08 15:30
PROVIDERS: ADMIT Obstetrics & Gynecology; ATTEND Obstetrics & Gynecology
DX: O26.833 Pregnancy related renal disease, third trimester (principal); N13.2 Hydronephrosis with renal and ureteral calculous obstruction; O99.89 Other specified diseases and conditions complicating pregnancy, childbirth and the puerperium; R31.29 Other microscopic hematuria; O99.333 Smoking (tobacco) complicating pregnancy, third trimester; Z3A.35 35 weeks gestation of pregnancy; F17.210 Nicotine dependence, cigarettes, uncomplicated; M19.90 Unspecified osteoarthritis, unspecified site; G89.29 Other chronic pain; M54.9 Dorsalgia, unspecified; M79.605 Pain in left leg; Z80.3 Family history of malignant neoplasm of breast; Z98.890 Other specified postprocedural states; Z79.899 Other long term (current) drug therapy
CPT/HCPCS: 59025; 96376 ×2; 96361; 96374; 96375; 81001; 80306; 76770; G0463; G0378 ×2; J1200 ×2; J0595; J2405; J0131 ×2; J1170 ×2; 99214

== ENCOUNTER 2020-07-10 06:38 | Inpatient (IN) | payer OTHER ==
[2020-07-10] MEDS ORDERED: METHYLERGONOVINE 0.2 MG/ML 1 ML AMP IM PRN (06:49)
[2020-07-10] MEDS ORDERED: OXYTOCIN 10 UNIT/ML 1 ML VIAL IM PRN (06:49)
[2020-07-10] MEDS ORDERED: TERBUTALINE 1 MG/ML VIAL SQ PRN (06:49)
[2020-07-10] MEDS ORDERED: LIDOCAINE 0.5% (PF) 5 MG/ML (50 ML SDV) SQ PRN (06:49)
[2020-07-10] MEDS ORDERED: CARBOPROST TROMETHAMINE 250 MCG/ML 1 ML AMP IM PRN (06:49)
[2020-07-10] MEDS ORDERED: OXYTOCIN 30 UNITS/500 ML NS 30 UNIT in SALINE 1 500ML.BAG IV SCH (07:00)
[2020-07-10 07:06] LABS: Basophils % (A) 1 %; Eosinophils # (A) 0.3 k/uL (0-0.7); Eosinophils % (A) 3 %; HCT 35.8 % (34.0-46.0); Lymphocytes # (A) 1.7 k/uL (1.0-4.8); Lymphocytes % (A) 21 %; MCH 32.4 pg (25.0-35.0); MCHC 33.6 g/dL (31.0-37.0); MCV 96.4 fL (80.0-100.0); Mean Platelet Volume 7.6; Monocytes # (A) 0.4 k/uL (0-1.0); Monocytes % (A) 5 %; Neutrophils # (A) 5.5 k/uL (1.3-7.7); Neutrophils % (A) 69 %; Platelet Count 215 k/uL (150-450); RBC 3.72 m/uL (3.80-5.40); WBC 7.9 k/uL (3.8-10.6)
[2020-07-10] MEDS: LACTATED RINGERS 1,000 ML IV SCH ×3 (07:09→15:38)
[2020-07-10] MEDS ORDERED: BUTORPHANOL 1 MG/ML 1 ML VIAL IV PRN (09:49)
--- NOTE | 2020-07-10 10:11 | P.HPOB ---
History of Present Illness H&P Date: 07/10/20 Chief Complaint: 39-3/7 weeks, elective induction The patient is a 30-year-old 5 para 1031 admitted at 39-3/7 weeks by last menstrual period and confirmed by 9 week ultrasound. She is admitted for elective induction of labor at her request secondary to significant term maternal discomfort with a favorable cervix. Her has been otherwise entirely uncomplicated though she has recently begun to have sciatic pain prompting her request for elective induction. She additionally had an episode of nephrolithiasis at approximately 35 weeks was able to pass the stone without incident. On labor and delivery, all signs reassuring with a category 1 tracing. Group B strep status is negative. Obstetrical history: 5 para 1031 with 1 term vaginal delivery followed by 3 recent spontaneous miscarriages not requiring D&C. Current statistics are listed in history present illness. EDC of 07/13/2020 was established by last menstrual period and confirmed by 9 week ultrasound. Laboratory workup demonstrates a blood type of O+ with a negative antibody screen. Rubella status is immune. Remainder of the laboratory workup was within normal limits though she did have a low-grade Pap smear which will be followed up . Early Glucola as well as second trimester Glucola were within normal limits and group B strep status is negative. Gynecologic history: Unremarkable with no history of any infections to include STDs. Review of Systems Review of systems is confined to history of present illness. Past Medical History Past Medical History: Osteoarthritis (OA) Additional Past Medical History / Comment(s): kidney stones, spinal stenosis, degenerative disc History of Any Multi-Drug Resistant Organisms: None Reported Past Surgical History: Back Surgery Additional Past Surgical History / Comment(s): Micro discectomy of spine X2. Past Anesthesia/Blood Transfusion Reactions: No Reported Reaction Past Psychological History: No Psychological Hx Reported Smoking Status: Current every day smoker Past Alcohol Use History: None Reported Additional Past Alcohol Use History / Comment(s): Has been smoking 11 yrs, <1/2 PPD. Past Drug Use History: None Reported - Past Family History Mother Family Medical History: Cancer Additional Family Medical History / Comment(s): Breast cancer. Medications and Allergies Home Medications Medication Instructions Recorded Confirmed Type Pantoprazole Sodium [Protonix] 20 mg PO DAILY PRN 03/15/20 07/10/20 History 114/Iron A-G/Folate 1 1 each PO DAILY 03/15/20 07/10/20 History [Prenate Elite Tablet] Allergies Allergy/AdvReac Type Severity Reaction Status Date / Time No Known Allergies Allergy Verified 07/10/20 06:49 Exam Vital Signs Temp Pulse Resp Pulse Ox 07/10/20 07:10 97.2 F L 119 H 16 98 Intake and Output 07/09/20 07/10/20 07/10/20 22:59 06:59 14:59 Other: Weight 115.666 kg 115.666 kg In general, this is a well-developed, mild to moderately obese white female in no acute distress. Her heart has a regular rhythm and rate without murmur. Her lungs are clear to auscultation bilaterally in all whaley. Her abdomen is gravid, nondistended, has normal active bowel sounds, soft, nontender, without any palpable masses aside from the uterine fundus. Her extremities are without any cyanosis, clubbing, or significant edema and are nontender to palpation bilaterally. Digital cervical examination demonstrates her cervix 3 to plus centimeters dilated, 50% effaced, the vertex in presentation at -2 station. Artificial rupture of membranes is carried out demonstrating clear fluid. Results Result Diagrams: 07/10/20 06:55 Abnormal Lab Results - Last 24 Hours (Table) 07/10/20 Range/Units 06:55 RBC 3.72 L (3.80-5.40) m/uL Assessment and Plan (1) Term Current Visit: Yes Status: Acute Code(s): Z34.90 - ENCNTR FOR SUPRVSN OF NORMAL , UNSP, UNSP TRIMESTER SNOMED Code(s): 62667905 Plan: The patient is admitted for elective induction of labor understanding the possible low-grade risk for delivery. Pitocin augmentation has been started and she has undergone artificial rupture of membranes. She will have close maternal and surveillance and expectant management will be practiced. She is a good candidate for either IV or epidural analgesia that she does have a history of some spinal surgery and has discussed this with anesthesia who agreed to attempt to place an epidural when the patient is ready.
[2020-07-10] MEDS ORDERED: ROPIVACAINE 5MG/ML 20ML VIAL ONE (11:17)
[2020-07-10] MEDS ORDERED: SODIUM CHLORIDE 0.9% 100 ML BAG ONE (11:17)
[2020-07-10] MEDS ORDERED: fentaNYL (PF) 50 MCG/ML 5 ML AMP ONE (11:17)
[2020-07-10] MEDS ORDERED: HYDROcodone/APAP 5-325MG 1 EACH TAB PO PRN (16:06)
[2020-07-10] MEDS ORDERED: diphenhydrAMINE 50 MG CAP PO PRN (16:06)
[2020-07-10] MEDS ORDERED: diphenhydrAMINE 25 MG CAP PO PRN (16:06)
[2020-07-10] MEDS ORDERED: ZOLPIDEM 5 MG TAB PO PRN (16:06)
[2020-07-10] MEDS ORDERED: HYDROCORTISONE 2.5% RECTAL CREAM 30 GM TUBE RECTAL PRN (16:06)
[2020-07-10] MEDS ORDERED: diphenhydrAMINE 50 MG/ML 1 ML VIAL IVP PRN ×2 (16:06)
[2020-07-10] MEDS ORDERED: SIMETHICONE 80 MG CHEWABLE PO PRN (16:06)
[2020-07-10] MEDS ORDERED: LANOLIN CREAM 5 GM TUBE TOPICAL PRN (16:06)
[2020-07-10] MEDS ORDERED: BENZOCAINE/MENTHOL SPRAY 1 GM/SPRAY AEROSOL TOPICAL PRN (16:06)
--- NOTE | 2020-07-10 16:08 | P.PROBDLV ---
Vaginal Delivery Note - . Vaginal Delivery Note: this is a pleasant 30-year-old 5 para 1031 at 39-4/7 weeks that presented to labor and delivery for elective induction of labor. Patient was admitted to labor and delivery and Pitocin induction of labor was begun per hospital protocol. Patient underwent amniotomy and clear fluid was obtained. Patient progressed through labor eventually becoming uncomfortable and requesting epidural placement. Epidural was placed without difficulty by the anesthesia department. Patient progressed to complete began pushing and had normal spontaneous vaginal delivery of a viable female infant at 1555, weight of 7 lbs. 10 oz. After a two-minute delayed the umbilical cord was doubly clamped and cut and the infant was handed off to the maternal abdomen. The placenta was then delivered spontaneously intact with three-vessel cord being noted. No vaginal lacerations were noted. Uterus is noted be firm and below the umbilicus. Estimated blood loss 200 mL. Patient and tolerated delivery well and are resting comfortably. All counts were noted be correct 2 at the end of the delivery.
[2020-07-10] MEDS ORDERED: OXYTOCIN 20 UNITS/1000 ML NS 1,000 ML IV SCH (16:15)
[2020-07-10] MEDS: IBUPROFEN 600 MG TAB PO PRN (18:00)
[2020-07-10] MEDS: ACETAMINOPHEN TAB 325 MG TAB PO PRN (20:07)
[2020-07-10] MEDS: SENNOSIDES-DOCUSATE SODIUM 1 EACH TAB PO SCH (20:07)
[2020-07-10 20:24] VITALS: RESP 16
[2020-07-11] MEDS: IBUPROFEN 600 MG TAB PO PRN ×2 (06:11→12:29)
[2020-07-11] MEDS: ACETAMINOPHEN TAB 325 MG TAB PO PRN (08:19)
[2020-07-11] MEDS: SENNOSIDES-DOCUSATE SODIUM 1 EACH TAB PO SCH (08:19)
--- NOTE | 2020-07-11 08:29 | P.DS ---
Providers Date of admission: 07/10/20 06:38 Expected date of discharge: 07/11/20 Attending physician: Cooper Gallegos Primary care physician: Stated None - Discharge Diagnosis(es) (1) Status post vaginal delivery Current Visit: Yes Status: Acute (2) Term Current Visit: Yes Status: Acute Hospital Course: this is a 30-year-old 5 para 1031 admitted at 39-3/7 weeks for elective induction of labor. Patient requested induction of labor secondary to maternal discomfort and had a noted febrile cervix. Patient has been receiving routine care which has been essentially uncomplicated despite sciatic pain that prompted her request for elective induction. Patient additionally had an episode of nephrolithiasis at 35 weeks of and was able to pass the stone without intervention. Patient was admitted to labor and delivery category 1 heart tones were noted. Patient was started on Pitocin for induction of labor. Pitocin was started per hospital protocol. Patient underwent amniotomy and clear fluid was obtained. Patient progressed through labor eventually becoming uncomfortable and requesting epidural placement. Epidural was placed without difficulty by the anesthesia department. Patient progressed to complete began pushing and had a normal spontaneous vaginal delivery of a viable female infant at 1555, weight of 7 lbs. 10 oz. No vaginal lacerations were sustained during delivery. Patient's course has been uneventful. On this day #1 she is ambulating and voiding without difficulty. She is tolerating a regular diet without nausea or vomiting. She states her pain is well-controlled. She would like discharge home at 24 hours if possible. Patient Condition at Discharge: Good Plan - Discharge Summary New Discharge Prescriptions: No Action Pantoprazole Sodium [Protonix] 20 mg PO DAILY PRN PRN Reason: heartburn 114/Iron A-G/Folate 1 [Prenate Elite Tablet] 1 each PO DAILY Discharge Medication List Pantoprazole Sodium [Protonix] 20 mg PO DAILY PRN 03/15/20 [History] 114/Iron A-G/Folate 1 [Prenate Elite Tablet] 1 each PO DAILY 03/15/20 [History] Follow up Appointment(s)/Referral(s): Cooper Gallegos MD [STAFF PHYSICIAN] - 6 Weeks Patient Instructions/Handouts: Vaginal Delivery (DC), Vaginal Delivery (GEN) Discharge Disposition: HOME SELF-CARE
[2020-07-11 16:04] VITALS: BP 134/73; PULSE 73; TEMP 98.6
== END 2020-07-11 16:42 | disposition home or self-care (01) | DRG 806 ==
LOC: 4FBP 06:38
PROVIDERS: ADMIT Obstetrics & Gynecology; ATTEND Obstetrics & Gynecology
PROC: 10E0XZZ Delivery of Products of Conception, External Approach (ICD-10-PCS; principal; 2020-07-10)
PROC: 10907ZC Drainage of Amniotic Fluid, Therapeutic from Products of Conception, Via Natural or Artificial Opening (ICD-10-PCS; principal; 2020-07-10)
PROC: 3E033VJ Introduction of Other Hormone into Peripheral Vein, Percutaneous Approach (ICD-10-PCS; principal; 2020-07-10)
PROC: 00HU33Z Insertion of Infusion Device into Spinal Canal, Percutaneous Approach (ICD-10-PCS; principal; 2020-07-10)
PROC: 3E0R3NZ Introduction of Analgesics, Hypnotics, Sedatives into Spinal Canal, Percutaneous Approach (ICD-10-PCS; principal; 2020-07-10)
DX: O99.334 Smoking (tobacco) complicating childbirth (principal); O26.833 Pregnancy related renal disease, third trimester; Z37.0 Single live birth; F17.210 Nicotine dependence, cigarettes, uncomplicated; M54.30 Sciatica, unspecified side; Z87.442 Personal history of urinary calculi; Z3A.39 39 weeks gestation of pregnancy; Z79.899 Other long term (current) drug therapy; Z80.3 Family history of malignant neoplasm of breast; R12 Heartburn; M48.00 Spinal stenosis, site unspecified; M19.90 Unspecified osteoarthritis, unspecified site
CPT/HCPCS: 85025; 86850; 86900; 86901

== ENCOUNTER → 2021-04-10 | Outpatient (CLI) | payer BC, OTHER ==
[2021-04-10 15:40] LABS: Basophils # (A) 0.1 k/uL (0-0.2); Basophils % (A) 1 %; Eosinophils # (A) 0.3 k/uL (0-0.7); Eosinophils % (A) 5 %; HCT 37.4 % (34.0-46.0); HGB 12.9 gm/dL (11.4-16.0); Lymphocytes # (A) 1.8 k/uL (1.0-4.8); Lymphocytes % (A) 29 %; MCHC 34.4 g/dL (31.0-37.0); MCV 92.9 fL (80.0-100.0); Mean Platelet Volume 7.4; Monocytes # (A) 0.4 k/uL (0-1.0); Monocytes % (A) 6 %; Neutrophils # (A) 3.6 k/uL (1.3-7.7); Neutrophils % (A) 58 %; Platelet Count 235 k/uL (150-450); RBC 4.03 m/uL (3.80-5.40); WBC 6.2 k/uL (3.8-10.6)
== END | disposition home or self-care (01) ==
LOC: LABPAT 14:47
PROVIDERS: ATTEND Obstetrics & Gynecology
DX: Z01.812 Encounter for preprocedural laboratory examination (principal); O02.1 Missed abortion; Z3A.00 Weeks of gestation of pregnancy not specified
CPT/HCPCS: 36415; 85025; 86850; 86900; 86901

== ENCOUNTER 2021-04-12 03:11 | Observation (INO) | payer BC, OTHER ==
[2021-04-12] MEDS ORDERED: SODIUM CHLORIDE 0.9% 500 ML 500 ML IV STA ×2 (03:37→04:23)
[2021-04-12] MEDS ORDERED: MORPHINE SULFATE 4 MG/ML SYRINGE IV STA (03:37)
--- NOTE | 2021-04-12 03:41 | ED ---
Female Urogenital HPI - General Chief complaint: Vaginal Bleeding Stated complaint: ABD Pain,Vaginal Bleeding Time Seen by Provider: 04/12/21 03:20 Source: patient, family Mode of arrival: ambulatory Limitations: no limitations - History of Present Illness Initial comments: This patient is a 30-year-old woman ([id number]) who believes she is proximal 7 wee ks by ultrasound. Patient presents with complaint of suprapubic pain and vaginal bleeding. Patient notes she has been having some cramping and bleeding going back over a week. She had been following with , who reportedly was doing serial ultrasounds and found that there was no evidence of growth and there was no heart tone, so the patient is scheduled for D&C in the morning. She states that her symptoms had worsened around 1 AM, with increased bleeding and pain. MD Complaint: vaginal bleeding, pelvic pain Onset/Timin -: hour(s) Location: suprapubic Severity: severe Quality: cramping, sharp Consistency: constant Improves with: none Worsens with: none Patient : Yes Number of weeks : 7 Associated Symptoms: vaginal bleeding - Related Data Home Medications Medication Instructions Recorded Confirmed Nf-Cymbalta Dose Unk 1 tab PO DAILY 04/11/21 04/11/21 Nf-Focaline 1 tab PO DAILY 04/11/21 04/11/21 Allergies Allergy/AdvReac Type Severity Reaction Status Date / Time No Known Allergies Allergy Verified 04/12/21 03:17 Review of Systems ROS Statement: Those systems with pertinent positive or pertinent negative responses have been documented in the HPI. ROS Other: All systems not noted in ROS Statement are negative. Constitutional: Denies: fever, chills Respiratory: Denies: cough, dyspnea Cardiovascular: Denies: chest pain, palpitations Gastrointestinal: Reports: as per HPI, abdominal pain. Denies: vomiting, diarrhea Genitourinary: Reports: abnormal menses. Denies: dysuria, frequency, hematuria Musculoskeletal: Denies: back pain Skin: Denies: rash Neurological: Denies: headache, weakness, numbness Hematological/Lymphatic: Denies: easy bleeding Past Medical History Past Medical History: Osteoarthritis (OA) Additional Past Medical History / Comment(s): kidney stones, spinal stenosis, degenerative disc History of Any Multi-Drug Resistant Organisms: None Reported Past Surgical History: Back Surgery Additional Past Surgical History / Comment(s): Micro discectomy of spine X2. Past Anesthesia/Blood Transfusion Reactions: No Reported Reaction Past Psychological History: ADD/ADHD, Depression Smoking Status: Current every day smoker Past Alcohol Use History: None Reported Past Drug Use History: None Reported - Past Family History Mother Family Medical History: Cancer Additional Family Medical History / Comment(s): Breast cancer. General Exam Limitations: no limitations General appearance: alert, in no apparent distress Eye exam: Present: normal appearance. Absent: scleral icterus, conjunctival injection Respiratory exam: Present: normal lung sounds bilaterally. Absent: respiratory distress, wheezes, rales, rhonchi, stridor Cardiovascular Exam: Present: regular rate, normal rhythm, normal heart sounds. Absent: systolic murmur, diastolic murmur, rubs, gallop GI/Abdominal exam: Present: soft. Absent: distended, tenderness, guarding, mir ound, rigid, mass External exam: Present: normal external exam. Absent: erythema, swelling, lesions, lacerations, ecchymosis Speculum exam: Present: vaginal bleeding. Absent: erythema, vaginal discharge, foreign body, laceration By manual exam: Present: uterine enlargement, uterine tenderness. Absent: adnexal tenderness, adnexal mass Extremities exam: Present: normal inspection, normal capillary refill. Absent: pedal edema, calf tenderness Back exam: Present: normal inspection. Absent: CVA tenderness (R), CVA tenderness (L) Neurological exam: Present: alert Skin exam: Present: warm, dry, intact, normal color. Absent: rash Course Vital Signs 04/12/21 03:12 Temperature 98 F Pulse Rate 85 Respiratory 20 Rate Blood Pressure 116/79 O2 Sat by Pulse 99 Oximetry Medical Decision Making - Medical Decision Making Patient is a 30-year-old woman continuing to have suprapubic pain and vaginal bleeding. Case is discussed with Dr. Pinedo, who is on-call for the group and will see the patient's, suspect will need DNC. - Lab Data Result diagrams: 04/12/21 03:50 Lab Results 04/12/21 04/12/21 04/12/21 Range/Units 03:50 03:50 03:50 WBC 7.1 (3.8-10.6) k/uL RBC 4.05 (3.80-5.40) m/uL Hgb 13.2 (11.4-16.0) gm/dL Hct 37.7 (34.0-46.0) % MCV 93.1 (80.0-100.0) fL MCH 32.6 (25.0-35.0) pg MCHC 35.1 (31.0-37.0) g/dL RDW 13.1 (11.5-15.5) % Plt Count 257 (150-450) k/uL MPV 7.2 Neutrophils % 54 % Lymphocytes % 33 % Monocytes % 5 % Eosinophils % 5 % Basophils % 1 % Neutrophils # 3.8 (1.3-7.7) k/uL Lymphocytes # 2.4 (1.0-4.8) k/uL Monocytes # 0.4 (0-1.0) k/uL Eosinophils # 0.4 (0-0.7) k/uL Basophils # 0.1 (0-0.2) k/uL PT (9.0-12.0) sec INR (<1.2) APTT (22.0-30.0) sec HCG, Quant 5856.7 mIU/mL Blood Type O Positive Blood Type Recheck O Pos Bld Type Recheck Status [facility] ONLY 04/12/21 Range/Units 03:50 WBC (3.8-10.6) k/uL RBC (3.80-5.40) m/uL Hgb (11.4-16.0) gm/dL Hct (34.0-46.0) % MCV (80.0-100.0) fL MCH (25.0-35.0) pg MCHC (31.0-37.0) g/dL RDW (11.5-15.5) % Plt Count (150-450) k/uL MPV Neutrophils % % Lymphocytes % % Monocytes % % Eosinophils % % Basophils % % Neutrophils # (1.3-7.7) k/uL Lymphocytes # (1.0-4.8) k/uL Monocytes # (0-1.0) k/uL Eosinophils # (0-0.7) k/uL Basophils # (0-0.2) k/uL PT 9.7 (9.0-12.0) sec INR 0.9 (<1.2) APTT 24.1 (22.0-30.0) sec HCG, Quant mIU/mL Blood Type Blood Type Recheck Bld Type Recheck Status Disposition Referrals: Desirae Riddle MD [Primary Care Provider] - 1-2 days
[2021-04-12 04:03] LABS: Basophils # (A) 0.1 k/uL (0-0.2); Basophils % (A) 1 %; Eosinophils # (A) 0.4 k/uL (0-0.7); Eosinophils % (A) 5 %; HCT 37.7 % (34.0-46.0); HGB 13.2 gm/dL (11.4-16.0); Lymphocytes # (A) 2.4 k/uL (1.0-4.8); Lymphocytes % (A) 33 %; MCH 32.6 pg (25.0-35.0); MCHC 35.1 g/dL (31.0-37.0); MCV 93.1 fL (80.0-100.0); Mean Platelet Volume 7.2; Monocytes # (A) 0.4 k/uL (0-1.0); Monocytes % (A) 5 %; Neutrophils # (A) 3.8 k/uL (1.3-7.7); Neutrophils % (A) 54 %; Platelet Count 257 k/uL (150-450); RBC 4.05 m/uL (3.80-5.40); RDW 13.1 % (11.5-15.5); WBC 7.1 k/uL (3.8-10.6)
[2021-04-12] MEDS ORDERED: TRANEXAMIC ACID 1,000 MG in SODIUM CHLORIDE 0.9% 100 ML IVPB ONE (04:03)
[2021-04-12] MEDS ORDERED: HYDROmorphone 1 MG/ML 1 ML SYRINGE IVP STA ×3 (04:03→05:11)
[2021-04-12 04:25] LABS: INR 0.9 (<1.2); Partial Thromboplastin Time 24.1 sec (22.0-30.0); Prothrombin Time 9.7 sec (9.0-12.0)
[2021-04-12] MEDS ORDERED: ONDANSETRON 4 MG/2 ML VIAL IVP PRN (06:18)
[2021-04-12] MEDS ORDERED: HYDROmorphone 0.5 MG/0.5 ML SYRINGE IVP PRN (06:18)
[2021-04-12] MEDS ORDERED: NALOXONE 0.4 MG/ML 1 ML VIAL IV PRN (06:18)
[2021-04-12] MEDS ORDERED: HYDROmorphone 1 MG/ML 1 ML SYRINGE IVP PRN (06:18)
[2021-04-12] MEDS ORDERED: SODIUM CHLORIDE 0.9% 1,000 ML IV SCH (06:30)
--- NOTE | 2021-04-12 06:44 | P.HPOB ---
History of Present Illness H&P Date: 04/12/21 Chief Complaint: To stay be, vaginal bleeding This is a 30-year-old 032 that presented to the emergency department this evening with complaints of increasing vaginal bleeding. Patient states she is passing large clots. Patient was known to be in the first trimester of with a nonviable . Patient states her last ultrasound revealed around 6 weeks positive gestational sac, positive pole no heart tones were appreciated. She states she noted around 12:31 AM she began bleeding heavily with passage of large clots. Patient's blood type is O+. Patient was scheduled today for suction dilation and curettage. Review of Systems Constitutional: Denies chills, Denies fatigue, Denies fever Ears, nose, mouth and throat: Denies headache Cardiovascular: Denies leg edema Gastrointestinal: Denies constipation, Denies diarrhea Genitourinary: Reports Past Medical History Past Medical History: Osteoarthritis (OA) Additional Past Medical History / Comment(s): kidney stones, spinal stenosis, degenerative disc History of Any Multi-Drug Resistant Organisms: None Reported Past Surgical History: Back Surgery Additional Past Surgical History / Comment(s): Micro discectomy of spine X2. Past Anesthesia/Blood Transfusion Reactions: No Reported Reaction Past Psychological History: ADD/ADHD, Depression Smoking Status: Current every day smoker Past Alcohol Use History: None Reported Past Drug Use History: None Reported - Past Family History Mother Family Medical History: Cancer Additional Family Medical History / Comment(s): Breast cancer. Medications and Allergies Home Medications Medication Instructions Recorded Confirmed Type DULoxetine HCL [Cymbalta] 30 mg PO BID 04/12/21 04/12/21 History Dexmethylphenidate HCl [Focalin Xr] 30 mg PO DAILY 04/12/21 04/12/21 History Allergies Allergy/AdvReac Type Severity Reaction Status Date / Time No Known Allergies Allergy Verified 04/12/21 03:17 Exam Osteopathic Statement: *. No significant issues noted on an osteopathic structural exam other than those noted in the History and Physical/Consult. Vital Signs Temp Pulse Resp BP Pulse Ox 04/12/21 03:12 98 F 85 20 116/79 99 Intake and Output 04/11/21 04/11/21 04/12/21 14:59 22:59 06:59 Other: Weight 97.976 kg Targeted physical exam is performed in this date and valance cutter a well-nourished well-developed female in no acute distress, breathing is nonlabored, heart has regular rhythm, abdomen is soft nontender, vaginal exam is deferred as it was done by the emergency department, large clots were appreciated. ER states they approximate 200 mL of blood loss so far. Results Result Diagrams: 04/12/21 03:50 Assessment and Plan (1) Missed Current Visit: No Status: Acute Code(s): O02.1 - MISSED SNOMED Code(s): 20522502 Plan: 30-year-old 032 at approximately 6 weeks of gestation with known missed AB. Patient presents emergency department with increasing vaginal bleeding, need for suction dilation and curettage given the amount of bleeding is discussed with patient patient is in agreement and wishes to proceed. Procedures reviewed and questions are answered.
[2021-04-12] MEDS ORDERED: LACTATED RINGERS 1,000 ML IV ONE (07:12)
[2021-04-12] MEDS ORDERED: SUCCINYLCHOLINE CHLORIDE 100 MG/5 ML SYR IV ONE (07:15)
[2021-04-12] MEDS ORDERED: fentaNYL (PF) 50 MCG/ML 2 ML AMP ONE (07:15)
[2021-04-12] MEDS ORDERED: MIDAZOLAM 2 MG/2 ML VIAL ONE (07:15)
[2021-04-12] MEDS ORDERED: METHYLERGONOVINE 0.2 MG/ML 1 ML AMP ONE (07:15)
[2021-04-12] MEDS ORDERED: PROPOFOL 10 MG/ML 20 ML VIAL IV ONE (07:15)
[2021-04-12] MEDS ORDERED: LIDOCAINE 1% INJ 10MG/ML (20 ML MDV) ONE (07:15)
[2021-04-12] MEDS ORDERED: ONDANSETRON 4 MG/2 ML VIAL IVP ONE (07:19)
[2021-04-12] MEDS ORDERED: SILVER NITRATE APPLICATOR 1 EACH STICK..EA. TOPICAL ONE (07:38)
--- NOTE | 2021-04-12 08:08 | P.OP ---
Date of Procedure: 04/12/21 Preoperative Diagnosis: Missed AB Postoperative Diagnosis: Same Procedure(s) Performed: Suction dilation and curettage Anesthesia: SABRINA Surgeon: Stella Pinedo Estimated Blood Loss (ml): 10 IV fluids (ml): 100 Urine output (ml): 75 Pathology: other (Uterine contents) Condition: stable Disposition: PACU Indications for Procedure: 30-year-old at a proximal 97 weeks gestation with known missed AB presents with increased vaginal bleeding overnight. Patient was scheduled for suction dilation curettage later this morning. Patient was noted to be passing large clots Aileen 200 mL were noted in the ER. Patient was taken operating suite for suction dilation and curettage. Operative Findings: Large amount of products of conception were cleared from the uterine cavity. Description of Procedure: Patient was taken back to the operating suite where general anesthesia was obtained without difficulty by the anesthesia department. She was prepped and draped in normal sterile fashion in the dorsal lithotomy position. A red rubber cath was used to drain the bladder clear yellow urine. A weighted speculum was placed in the posterior vaginal vault intralipids the cervix is visualized and grasped with a single-tooth tenaculum. The endocervical canal was then dilated. An 8 curved suction curette was then placed through the cervix and toward the endometrial cavity a large amount of products of conception were cleared from the uterine cavity. Multiple passes were done with the suction curet. Afterwards a gentle curettage was performed. The uterus was noted to be empty products of conception. One final pass of the suction curet was performed. The uterus was noted to be firm. Bleeding was minimal. The single-tooth tenaculum was taken off of the anterior lip of the cervix, some bleeding was noted therefore silver nitrate was applied. All instruments removed from the patient's vaginal vault patient did tolerate procedure well and was taken the recovery room awake in stable condition. All counts were noted be correct 2 at the end of the procedure.
[2021-04-12 08:16] VITALS: RESP 16; TEMP 99
[2021-04-12] MEDS ORDERED: KETOROLAC 15 MG/ML 1 ML VIAL IVP ONE (08:19)
[2021-04-12] MEDS ORDERED: PANTOPRAZOLE 40 MG/10 ML VIAL IV SCH (09:00)
[2021-04-12 09:31] VITALS: BP 96/58; PULSE 64
== END 2021-04-12 10:16 | disposition home or self-care (01) ==
LOC: EC 03:11 → 4SSUR 06:18 → 6NMEDSUR 06:32 → 2ORMAIN 07:24
PROVIDERS: ADMIT Obstetrics & Gynecology Obstetrics; ATTEND Obstetrics & Gynecology Obstetrics
DX: O02.1 Missed abortion (principal); M19.90 Unspecified osteoarthritis, unspecified site; M48.00 Spinal stenosis, site unspecified; K21.9 Gastro-esophageal reflux disease without esophagitis; F32.9 Major depressive disorder, single episode, unspecified; F90.9 Attention-deficit hyperactivity disorder, unspecified type; F17.210 Nicotine dependence, cigarettes, uncomplicated; Z79.899 Other long term (current) drug therapy; Z87.442 Personal history of urinary calculi; Z98.890 Other specified postprocedural states; Z80.3 Family history of malignant neoplasm of breast
CPT/HCPCS: 96376; 96374; 96375; 99284; 36415; 86900; 86901; 88305; 85025; 85610; 85730; 84702; 59820; G0378 ×2; J2250; J2270; J2210; J2405; J2001; J3010; J1170; J1885; J0330; J2704

== ENCOUNTER → 2021-12-26 | Outpatient (CLI) | payer BC, OTHER ==
--- NOTE | 2021-12-26 11:58 | US ---
EXAMINATION TYPE: Ultrasound OB <= 14 weeks transvaginal DATE OF EXAM: 12/26/2021 11:43 AM COMPARISON: NONE CLINICAL HISTORY: 31-year-old female R68.89 OTHER GENERAL SYMPTOMS AND SIGNS, N96 RECUR. Cramping EXAM PERFORMED: Transvaginal (TV) and Transabdominal (TA) FINDINGS: EXAM MEASUREMENTS: GESTATIONAL AGE / DATING Physician Established: Not yet established Dates by LMP: LMP unknown Dates by First Scan: No previous this is first scan Dates by Current Scan for: (6 weeks/3 days) EDC: 08/18/2022 MATERNAL ANATOMY Uterus: 8.5 x 5.7 x 6.1cm Right Ovary: 2.9 x 2.4 x 2.2cm Left Ovary: not seen Post CDS / Adnexa: small amount of free fluid in posterior cul de sac Presence of free fluid: yes Presence of corpus luteal cyst: right ovary: 1.8 x 2.1 x 1.7cm Presence of subchorionic bleed: 1.1 x 0.6 x 0.7cm superior to gestational sac GESTATION / SURVEY Gestational sac is seen along the anterior uterine fundus/body CRL: 0.5cm (6 weeks/2 days) Yolk Sac (normal less than 6mm): 0.4cm Heart Rate: 103 bpm (normal > 100 BPM) Rhythm: Normal Date of LMP: Unknown Beta HcG (if available): Not available at time of exam IMPRESSION: 1. Single live intrauterine with a gestational age of 6 weeks 2 days by crown-rump length. 2. heart rate of 103 BPM is just within the normal range for this age. Given the small 1.1 cm p erigestational bleed, consider short interval follow-up. 3. A 2.1 cm right corpus luteum. 4. Complete survey recommended at 18-20 weeks.
== END | disposition home or self-care (01) ==
LOC: RADUSWWP 11:12
PROVIDERS: ATTEND Obstetrics & Gynecology
DX: O34.11 Maternal care for benign tumor of corpus uteri, first trimester (principal); O26.891 Other specified pregnancy related conditions, first trimester; Z3A.01 Less than 8 weeks gestation of pregnancy
CPT/HCPCS: 76801; 76817

== ENCOUNTER 2022-08-14 06:00 | Inpatient (IN) | payer BC, OTHER ==
[2022-08-14] MEDS ORDERED: TERBUTALINE 1 MG/ML VIAL SQ PRN (07:23)
[2022-08-14] MEDS ORDERED: CARBOPROST TROMETHAMINE 250 MCG/ML 1 ML AMP IM PRN (07:23)
[2022-08-14] MEDS ORDERED: LIDOCAINE 0.5% (PF) 5 MG/ML (50 ML SDV) SQ PRN (07:23)
[2022-08-14] MEDS ORDERED: TRANEXAMIC ACID IN NACL,ISO-OS 1,000 MG in EMPTY BAG 1 BAG IV PRN (07:23)
[2022-08-14] MEDS ORDERED: miSOPROStoL 200 MCG TAB PO PRN (07:23)
[2022-08-14] MEDS ORDERED: METHYLERGONOVINE 0.2 MG/ML 1 ML AMP IM PRN (07:23)
[2022-08-14] MEDS ORDERED: OXYTOCIN 30 UNITS/500 ML NS 30 UNIT in SALINE 1 500ML.BAG IV SCH (07:30)
[2022-08-14] MEDS: LACTATED RINGERS 1,000 ML IV SCH ×2 (07:36→20:07)
[2022-08-14 07:56] LABS: Basophils % (A) 0 %; Eosinophils # (A) 0.2 k/uL (0-0.7); Eosinophils % (A) 2 %; HGB 12.3 gm/dL (11.4-16.0); Lymphocytes # (A) 1.6 k/uL (1.0-4.8); Lymphocytes % (A) 17 %; MCH 31.4 pg (25.0-35.0); MCHC 33.2 g/dL (31.0-37.0); MCV 94.4 fL (80.0-100.0); Monocytes # (A) 0.4 k/uL (0-1.0); Monocytes % (A) 4 %; Neutrophils # (A) 6.7 k/uL (1.3-7.7); Neutrophils % (A) 74 %; Platelet Count 220 k/uL (150-450); RBC 3.92 m/uL (3.80-5.40); RDW 13.1 % (11.5-15.5); WBC 9.2 k/uL (3.8-10.6)
[2022-08-14 08:13] VITALS: RESP 16
[2022-08-14] MEDS ORDERED: BUTORPHANOL 1 MG/ML 1 ML VIAL IV PRN (08:33)
--- NOTE | 2022-08-14 08:39 | P.HPOB ---
History of Present Illness H&P Date: 08/14/22 Chief Complaint: 39+ weeks, elective induction the patient is a 32-year-old 7 para 2041 admitted at 39+ weeks as established by a 6 week ultrasound. She is admitted for elective induction of labor with all signs reassuring, a category 1 heart rate tracing. Her has been essentially uncomplicated and group B strep status is negative. She did request tubal ligation and signed consent to that effect in the office should a section become necessary. Otherwise she understands that tubal ligation will be performed around her 6 week visit. Obstetrical history: 7 para 2041 with 2 term vaginal deliveries and 4 miscarriages current statistics are listed in history of present illness. EDC of 08/18/2022 was established by a 6 week ultrasound. Laboratory workup demonstrates a blood type of O+ with a negative antibody screen. Rubella status is immune. The remainder of the laboratory workup was within normal limits. Early Glucola was normal as was second trimester Glucola. Group B strep status is negative. Oncologic history: Unremarkable with no history of any infections to include STDs Review of Systems review of systems is confined to history of present illness. Past Medical History Past Medical History: Osteoarthritis (OA) Additional Past Medical History / Comment(s): kidney stones, spinal stenosis, d egenerative disc History of Any Multi-Drug Resistant Organisms: None Reported Past Surgical History: Back Surgery Additional Past Surgical History / Comment(s): Micro discectomy of spine X2. Past Anesthesia/Blood Transfusion Reactions: No Reported Reaction Past Psychological History: ADD/ADHD, Depression Smoking Status: Current every day smoker Past Alcohol Use History: None Reported Additional Past Alcohol Use History / Comment(s): Has been smoking 11 yrs, <1/2 PPD. Past Drug Use History: None Reported - Past Family History Mother Family Medical History: Cancer Additional Family Medical History / Comment(s): Breast cancer. Medications and Allergies Home Medications Medication Instructions Recorded Confirmed Type Omeprazole [PriLOSEC] 20 mg PO 08/14/22 History Allergies Allergy/AdvReac Type Severity Reaction Status Date / Time No Known Allergies Allergy Verified 08/14/22 07:04 Exam Vital Signs Temp Pulse Resp BP Pulse Ox 08/14/22 07:02 97.0 F L 90 16 128/68 100 Intake and Output 08/13/22 08/14/22 08/14/22 22:59 06:59 14:59 Other: Weight 102.512 kg in general, this is a well-developed, well-nourished white female in no acute distress. Her heart has a regular rhythm and rate without murmur. Her lungs are clear to auscultation bilaterally in all whaley. Her abdomen is gravid, nondistended, has normal active bowel sounds, is soft, nontender, without any palpable masses aside from the uterine fundus. Her extremities are without any cyanosis, clubbing, or significant edema and are nontender to palpation. Digital cervical examination demonstrates her surgery 2-3 cm dilated, ap proximately 50% effaced, the vertex in presentation at -2-3 station. Artificial rupture of membranes is carried out demonstrating clear fluid. Results Result Diagrams: 08/14/22 06:59 Assessment and Plan (1) Term Current Visit: No Status: Acute Code(s): Z34.90 - ENCNTR FOR SUPRVSN OF NORMAL , UNSP, UNSP TRIMESTER SNOMED Code(s): 08283095 Plan: the patient has been admitted for elective induction of labor. Pitocin augmentation has been started and she has undergone artificial rupture of membranes for clear fluid. She will continue to have close maternal and surveillance and expectant management will be practiced. She is an excellent candidate for either IV or epidural analgesia, whichever she may choose.
[2022-08-14] MEDS ORDERED: ROPIVACAINE 5 MG/ML 20 ML AMPULE ONE (09:27)
[2022-08-14] MEDS ORDERED: fentaNYL (PF) 50 MCG/ML 5 ML AMP ONE (09:27)
[2022-08-14] MEDS ORDERED: SODIUM CHLORIDE 0.9% 100 ML BAG ONE (09:27)
[2022-08-14] MEDS ORDERED: diphenhydrAMINE 25 MG CAP PO PRN (14:26)
[2022-08-14] MEDS ORDERED: diphenhydrAMINE 50 MG/ML 1 ML VIAL IVP PRN ×2 (14:26)
[2022-08-14] MEDS ORDERED: ZOLPIDEM 5 MG TAB PO PRN (14:26)
[2022-08-14] MEDS ORDERED: LANOLIN CREAM 5 GM TUBE TOPICAL PRN (14:26)
[2022-08-14] MEDS ORDERED: BENZOCAINE/MENTHOL SPRAY 1 GM/SPRAY AEROSOL TOPICAL PRN (14:26)
[2022-08-14] MEDS ORDERED: SIMETHICONE 80 MG CHEWABLE PO PRN (14:26)
[2022-08-14] MEDS ORDERED: diphenhydrAMINE 50 MG CAP PO PRN (14:26)
[2022-08-14] MEDS ORDERED: HYDROCORTISONE 2.5% RECTAL CREAM 30 GM TUBE RECTAL PRN (14:26)
[2022-08-14] MEDS ORDERED: HYDROcodone/APAP 5-325MG 1 EACH TAB PO PRN (14:26)
--- NOTE | 2022-08-14 14:30 | P.PROBDLV ---
Vaginal Delivery Note - . Vaginal Delivery Note: the patient is a 32-year-old 7 para 2041 admitted at 39-3/7 weeks by good dating parameters. She is admitted for elective induction of labor with all signs reassuring, category 1 heart rate tracing. Her was essentially uncomplicated and group B strep status is negative. On labor and delivery, she had Pitocin started followed by artificial rupture of membranes for clear fluid. She made some progress to the active phase and had an epidural catheter placed for analgesia. She then progressed relatively quickly through the active phase of labor to complete. She pushed over the course of 1 contraction to a normal spontaneous vaginal delivery of a viable 6 lbs. 14 oz. baby boy with Apgars of 9 at 1 minute and 9 at 5 minutes delivered in the direct occiput anterior position. The placenta was delivered spontaneously, intact, and grossly normal although there may have been a small marginal placental abruption. There was a grossly normal, centrally inserted three-vessel cord. There were no lacerations of the perineum, vagina, or cervix. Estimated blood loss for the case is approximately 150 mL. There were no complications. All sponge, instrument, needle counts were correct. Both mother and infant are resting comfortably in recovery.
[2022-08-14] MEDS: IBUPROFEN 600 MG TAB PO PRN ×2 (15:22→21:49)
[2022-08-14] MEDS: SENNOSIDES-DOCUSATE SODIUM 1 EACH TAB PO SCH (19:30)
[2022-08-14] MEDS: ACETAMINOPHEN TAB 325 MG TAB PO PRN (19:30)
[2022-08-15] MEDS: ACETAMINOPHEN TAB 325 MG TAB PO PRN (03:47)
[2022-08-15] MEDS: HYDROcodone/APAP 7.5-325MG 1 EACH TAB PO PRN ×2 (05:19→10:52)
[2022-08-15 06:14] LABS: Basophils % (A) 0 %; Eosinophils # (A) 0.2 k/uL (0-0.7); Eosinophils % (A) 2 %; HGB 10.9 gm/dL (11.4-16.0); Lymphocytes # (A) 1.6 k/uL (1.0-4.8); Lymphocytes % (A) 16 %; MCH 31.7 pg (25.0-35.0); Mean Platelet Volume 8.9; Monocytes # (A) 0.4 k/uL (0-1.0); Monocytes % (A) 4 %; Neutrophils # (A) 7.4 k/uL (1.3-7.7); Neutrophils % (A) 75 %; Platelet Count 184 k/uL (150-450); RBC 3.44 m/uL (3.80-5.40); RDW 13.3 % (11.5-15.5); WBC 9.9 k/uL (3.8-10.6)
[2022-08-15] MEDS: SENNOSIDES-DOCUSATE SODIUM 1 EACH TAB PO SCH (07:33)
[2022-08-15] MEDS: IBUPROFEN 600 MG TAB PO PRN (07:33)
[2022-08-15 08:18] VITALS: BP 127/68; PULSE 84; TEMP 97.4
--- NOTE | 2022-08-15 10:48 | P.DS ---
Providers Date of admission: 08/14/22 06:33 Expected date of discharge: 08/15/22 Attending physician: Cooper Gallegos Primary care physician: Stated None - Discharge Diagnosis(es) (1) Term Current Visit: Yes Status: Acute (2) Status post vaginal delivery Current Visit: Yes Status: Acute Hospital Course: the patient is a 32-year-old 7 para 2041 admitted at 39-3/7 weeks by good dating parameters perches admitted for elective induction with all signs reassuring. Her was uncomplicated and group B strep status is negative. On labor and delivery, she had Pitocin started followed by artificial rupture of membranes for clear fluid. She made progress to the beginning of the active phase of labor which time an epidural catheter was placed for analgesia. She continued to make fairly steady progress and progressed to complete where after she pushed to a normal spontaneous vaginal delivery of a viable 6 lbs. 14 oz. baby boy with Apgars of 9 at 1 minute and 9 at 5 minutes. Her course was unremarkable vital signs remaining stable and her temperature was afebrile throughout. She was deemed stable for discharge on day #1 and was discharged home to follow-up in the office in 6 weeks' time routinely. Discharge instructions included calling for any significantly increased bleeding or foul-smelling lochia, significantly increased fever or abdominal pain, perineal complaints, breast complaints, or anything also concerned her. She is additionally instructed to have nothing in vagina for at least 6 weeks time to include intercourse. She understood all of her instructions and agrees follow up as noted above. She doesn't tend to have a tubal ligation done at the 6 week abhi laparoscopically and has signed consent to that effect in the office. maternal blood type is O+ and rubella status is immune. Procedures: #1. Pitocin induction #2. Artificial rupture of membranes #3. Epidural analgesia #4. Normal spontaneous vaginal delivery Patient Condition at Discharge: Stable Plan - Discharge Summary New Discharge Prescriptions: No Action No Known Home Medications Discharge Medication List No Known Home Medications 08/14/22 [History] Follow up Appointment(s)/Referral(s): Cooper Gallegos MD [STAFF PHYSICIAN] - 6 Weeks Discharge Disposition: HOME SELF-CARE
== END 2022-08-15 14:55 | disposition home or self-care (01) | DRG 807 ==
LOC: 4FBP 06:33
PROVIDERS: ADMIT Obstetrics & Gynecology; ATTEND Obstetrics & Gynecology
DX: O45.8X3 Other premature separation of placenta, third trimester (principal); Z37.0 Single live birth; F32.A Depression, unspecified; F90.9 Attention-deficit hyperactivity disorder, unspecified type; O99.344 Other mental disorders complicating childbirth; O99.334 Smoking (tobacco) complicating childbirth; M48.00 Spinal stenosis, site unspecified; F17.210 Nicotine dependence, cigarettes, uncomplicated; M19.90 Unspecified osteoarthritis, unspecified site; O26.893 Other specified pregnancy related conditions, third trimester; Z3A.39 39 weeks gestation of pregnancy; Z87.442 Personal history of urinary calculi
CPT/HCPCS: 85025; 86850; 86900; 86901

== ENCOUNTER 2023-11-14 19:38 | Emergency (ER) | payer BC, OTHER ==
[2023-11-14 20:07] VITALS: TEMP 97.9
--- NOTE | 2023-11-14 21:07 | ED ---
General Adult HPI - General Chief complaint: Headache Stated complaint: Eye swelling Time Seen by Provider: 11/14/23 20:06 Source: patient Mode of arrival: ambulatory Limitations: no limitations - History of Present Illness Initial comments: 3-year-old female presenting to the ED with a chief complaint of allergic reaction. Patient states he normally moisturizes her hair with coconut oil. States 2 nights ago she added an essential oil to this. When she awoke the following morning she noticed that her hair was draped over her face and states the areas in which her hair was covering her face broke out in a rash and had swelling. Has been taking Benadryl with significant improvement of rash and itching however states that she still having some ongoing facial swelling prompting presentation to the ED for further evaluation. No fever or chills. No changes in vision. No eye pain. No dyspnea. No dysphagia. No other complaints at this time. - Related Data Home Medications Medication Instructions Recorded Confirmed Unk Gummies 1 tab PO DAILY 11/12/22 11/12/22 Allergies Allergy/AdvReac Type Severity Reaction Status Date / Time No Known Allergies Allergy Verified 11/14/23 19:43 Review of Systems ROS Statement: Those systems with pertinent positive or pertinent negative responses have been documented in the HPI. ROS Other: All systems not noted in ROS Statement are negative. Past Medical History Past Medical History: Osteoarthritis (OA) Additional Past Medical History / Comment(s): kidney stones, spinal stenosis, degenerative disc History of Any Multi-Drug Resistant Organisms: None Reported Past Surgical History: Back Surgery Additional Past Surgical History / Comment(s): Micro discectomy of spine X2. Past Anesthesia/Blood Transfusion Reactions: No Reported Reaction Past Psychological History: ADD/ADHD, Depression Smoking Status: Never smoker Past Alcohol Use History: Occasional Past Drug Use History: None Reported - Past Family History Mother Family Medical History: Cancer Father Family Medical History: Coronary Artery Disease (CAD), Myocardial Infarction ([place]) General Exam Limitations: no limitations General appearance: alert, in no apparent distress Head exam: Present: other (Minimal facial swelling primarily underneath her eyelids however no surrounding warmth erythema or evidence of orbital/periorbital cellulitis.) Neck exam: Present: normal inspection Respiratory exam: Present: normal lung sounds bilaterally Cardiovascular Exam: Present: regular rate, normal rhythm GI/Abdominal exam: Present: soft Neurological exam: Present: alert, oriented X3 Skin exam: Present: warm, dry Course Vital Signs 11/14/23 19:39 Temperature 97.9 F Pulse Rate 77 Respiratory 18 Rate Blood Pressure 136/84 O2 Sat by Pulse 100 Oximetry Medical Decision Making - Medical Decision Making Was pt. sent in by a medical professional or institution (NISHA Subramanian, MEDICAL FEE CLERK, urgent care, hospital, or fdc...) When possible be specific @ -No Did you speak to anyone other than the patient for history (EMS, parent, family, police, friend...)? What history was obtained from this source @ -No Did you review nursing and triage notes (agree or disagree)? Why? @ -I reviewed and agree with nursing and triage notes Were old charts reviewed (outside hosp., previous admission, EMS record, old EKG, old radiological studies, urgent care reports/EKG's, fdc records)? Report findings @ -No old charts were reviewed Differential Diagnosis (chest pain, altered mental status, abdominal pain women, abdominal pain men, vaginal bleeding, weakness, fever, dyspnea, syncope, headache, dizziness, GI bleed, back pain, seizure, CVA, palpatations, mental health, musculoskeletal)? @ -Anaphylaxis, acute urticaria, orbital cellulitis, periorbital cellulitis. This Is not meant to be an all-inclusive list. EKG interpreted by me (3pts min.). @ -None X-rays interpreted by me (1pt min.). @ -None done CT interpreted by me (1pt min.). @ -None done U/S interpreted by me (1pt. min.). @ -None done What testing was considered but not performed or refused? (CT, X-rays, U/S, labs)? Why? @ -None What meds were considered but not given or refused? Why? @ -None Did you discuss the management of the patient with other professionals (professionals i.e. NISHA Subramanian, MEDICAL FEE CLERK, lab, RT, psych nurse, social worker masters, industrial nurse, teacher, sea air land officer, case assistant)? Give summary @ -No Was smoking cessation discussed for >3mins.? @ -No Was critical care preformed (if so, how long)? @ -No Were there social determinants of health that impacted care today? How? (Homelessness, low income, unemployed, alcoholism, drug addiction, transportation, low edu. Level, literacy, decrease access to med. care, retirement, rehab)? @ -No Was there de-escalation of care discussed even if they declined (Discuss DNR or withdrawal of care, Hospice)? DNR status @ -No What co-morbidities impacted this encounter? (DM, HTN, Smoking, COPD, CAD, Cancer, CVA, ARF, Chemo, Hep., AIDS, mental health diagnosis, sleep apnea, morbid obesity)? @ -None Was patient admitted / discharged? Hospital course, mention meds given and route, prescriptions, significant lab abnormalities, going to OR and other pertinent info. @ -Discharge 33-year-old female presenting to the ED after developing facial swelling and rash after using a new product in her hair which ended up covering her face while she was sleeping. Has had significant improvement of rash and itching with Benadryl however presenting to the ED as she still has some facial swelling. No significant facial swelling on exam with no evidence of dyspnea, stridor, and patient is tolerating secretions. She did have some minimal swelling underneath her eyelids however there is no evidence of periorbital or orbital cellulitis at this time. After discussion, patient would like to try steroids to attempt to reduce facial swelling. Patient provided dose of steroids here and discharged home in stable condition. Discussed return precautions with patient and family who verbalized agreement. Undiagnosed new problem with uncertain prognosis? @ -No Drug Therapy requiring intensive monitoring for toxicity (Heparin, Nitro, Insulin, Cardizem)? @ -No Were any procedures done? @ -No Diagnosis/symptom? @ -Contact dermatitis/facial swelling Acute, or Chronic, or Acute on Chronic? @ -Acute Uncomplicated (without systemic symptoms) or Complicated (systemic symptoms)? @ -Uncomplicated Side effects of treatment? @ -No Exacerbation, Progression, or Severe Exacerbation? @ -No Poses a threat to life or bodily function? How? (Chest pain, [place], [place], pneumonia, PE, COPD, DKA, ARF, appy, cholecystitis, CVA, Diverticulitis, Homicidal, Suicidal, threat to staff... and all critical care pts) @ -No Disposition Clinical Impression: Contact dermatitis Disposition: HOME SELF-CARE Condition: Good Instructions (If sedation given, give patient instructions): Contact Dermatitis (ED) Additional Instructions: Please return to the Emergency Department if symptoms worsen or any other concerns. Please follow-up with your primary care provider. Is patient prescribed a controlled substance at d/c from ED?: No Referrals: None,Stated [Primary Care Provider] - 1-2 days Time of Disposition: 21:00
[2023-11-14] MEDS: methylPREDNISolone SOD SUCCI 125 MG/2 ML VIAL IM ONE (21:14)
[2023-11-14 21:30] VITALS: BP 121/79; PULSE 82; RESP 16
== END 2023-11-14 21:25 | disposition home or self-care (01) ==
LOC: EC 19:38
DX: L25.9 Unspecified contact dermatitis, unspecified cause (principal); Z86.59 Personal history of other mental and behavioral disorders
CPT/HCPCS: 99283; 96372; J2930

== ENCOUNTER 2023-11-23 12:02 | Emergency (ER) | payer OTHER ==
--- NOTE | 2023-11-23 12:19 | ED ---
General Adult HPI - General Stated complaint: Congestion Time Seen by Provider: 11/23/23 12:07 Source: patient, RN notes reviewed Mode of arrival: ambulatory Limitations: no limitations - History of Present Illness Initial comments: 33-year-old female presents emergency department chief complaint of fever cough congestion and bodyaches. Symptoms started 5 days ago. Patient states she did have slight nausea, GI symptoms. Patient's 2 kids have similar symptoms. Patient denies any significant neck or back pain she states she has diffuse bodyaches and a headache. - Related Data Home Medications Medication Instructions Recorded Confirmed Unk Gummies 1 tab PO DAILY 11/12/22 11/12/22 Allergies Allergy/AdvReac Type Severity Reaction Status Date / Time No Known Allergies Allergy Verified 11/23/23 12:22 Review of Systems ROS Statement: Those systems with pertinent positive or pertinent negative responses have been documented in the HPI. ROS Other: All systems not noted in ROS Statement are negative. Past Medical History Past Medical History: Osteoarthritis (OA) Additional Past Medical History / Comment(s): kidney stones, spinal stenosis, degenerative disc History of Any Multi-Drug Resistant Organisms: None Reported Past Surgical History: Back Surgery Additional Past Surgical History / Comment(s): Micro discectomy of spine X2. Past Anesthesia/Blood Transfusion Reactions: No Reported Reaction Past Psychological History: ADD/ADHD, Depression Smoking Status: Never smoker Past Alcohol Use History: Occasional Past Drug Use History: None Reported - Past Family History Mother Family Medical History: Cancer Additional Family Medical History / Comment(s): Breast cancer. tumors on legs and breast Father Family Medical History: Coronary Artery Disease (CAD), Myocardial Infarction ([place]) Additional Family Medical History / Comment(s): spinal surgery General Exam Limitations: no limitations General appearance: alert, in no apparent distress Head exam: Present: atraumatic, normocephalic, normal inspection Eye exam: Present: normal appearance, PERRL, EOMI. Absent: scleral icterus, conjunctival injection, periorbital swelling ENT exam: Present: normal exam, normal oropharynx, mucous membranes moist Neck exam: Present: normal inspection, full ROM. Absent: tenderness, meningismus, lymphadenopathy Respiratory exam: Present: normal lung sounds bilaterally. Absent: respiratory distress, wheezes, rales, rhonchi, stridor Cardiovascular Exam: Present: regular rate, normal rhythm, normal heart sounds. Absent: systolic murmur, diastolic murmur, rubs, gallop, clicks Course Vital Signs 11/23/23 11/23/23 11/23/23 12:20 12:41 14:03 Temperature 98.1 F 99.0 F Pulse Rate 79 86 Respiratory 18 18 18 Rate Blood Pressure 128/71 136/80 O2 Sat by Pulse 100 97 Oximetry Medical Decision Making - Medical Decision Making Was pt. sent in by a medical professional or institution (, NISHA, DERRICK BOAT RUNNER, urgent care, hospital, or prison...) When possible be specific @ -No Did you speak to anyone other than the patient for history (EMS, parent, family, police, friend...)? What history was obtained from this source @ -None Did you review nursing and triage notes (agree or disagree)? Why? @ -I reviewed and agree with nursing and triage notes Were old charts reviewed (outside hosp., previous admission, EMS record, old EKG, old radiological studies, urgent care reports/EKG's, prison records)? Report findings @ -No old charts were reviewed Differential Diagnosis (chest pain, altered mental status, abdominal pain women, abdominal pain men, vaginal bleeding, weakness, fever, dyspnea, syncope, headache, dizziness, GI bleed, back pain, seizure, CVA, palpatations, mental hea lth, musculoskeletal)? @ -[COVID 19, RSV, influenza, pneumonia, acute bronchitis, URI, this list is not all inclusive EKG interpreted by me (3pts min.). @ -None X-rays interpreted by me (1pt min.). @ -None done CT interpreted by me (1pt min.). @ -None done U/S interpreted by me (1pt. min.). @ -None done What testing was considered but not performed or refused? (CT, X-rays, U/S, labs)? Why? @ -None What meds were considered but not given or refused? Why? @ -None Did you discuss the management of the patient with other professionals (professionals i.e. NISHA Subramanian, DERRICK BOAT RUNNER, lab, RT, psych nurse, director social, talent acquisition program manager, teacher, agricultural extension officer, immigration case manager)? Give summary @ -No Was smoking cessation discussed for >3mins.? @ -No Was critical care preformed (if so, how long)? @ -No Were there social determinants of health that impacted care today? How? (Homelessness, low income, unemployed, alcoholism, drug addiction, transportation, low edu. Level, literacy, decrease access to med. care, correction, rehab)? @ -No Was there de-escalation of care discussed even if they declined (Discuss DNR or withdrawal of care, Hospice)? DNR status @ -No What co-morbidities impacted this encounter? (DM, HTN, Smoking, COPD, CAD, Cancer, CVA, ARF, Chemo, Hep., AIDS, mental health diagnosis, sleep apnea, morbid obesity)? @ -None Was patient admitted / discharged? Hospital course, mention meds given and route, prescriptions, significant lab abnormalities, going to OR and other pertinent info. @ -[Discharge patient is influenza A positive discharged in stable condition with supportive treatment. Undiagnosed new problem with uncertain prognosis? @ -No Drug Therapy requiring intensive monitoring for toxicity (Heparin, Nitro, Insulin, Cardizem)? @ -No Were any procedures done? @ -No Diagnosis/symptom? @ -Influenza A Acute, or Chronic, or Acute on Chronic? @ -Acute Uncomplicated (without systemic symptoms) or Complicated (systemic symptoms)? @ -Uncomplicated Side effects of treatment? @ -No Exacerbation, Progression, or Severe Exacerbation? @ -No Poses a threat to life or bodily function? How? (Chest pain, [place], [place], pneumonia, PE, COPD, DKA, ARF, appy, cholecystitis, CVA, Diverticulitis, Homicidal, Suicidal, threat to staff... and all critical care pts) @ -No - Lab Data Lab Results 11/23/23 Range/Units 12:36 Influenza Type A (PCR) Detected A (Not Detectd) Influenza Type B (PCR) Not Detected (Not Detectd) RSV (PCR) Not Detected (Not Detectd) SARS-CoV-2 (PCR) Not Detected (Not Detectd) Disposition Clinical Impression: Influenza A Disposition: HOME SELF-CARE Condition: Stable Instructions (If sedation given, give patient instructions): Influenza (ED) Additional Instructions: Please return to the Emergency Department if symptoms worsen or any other concerns. Is patient prescribed a controlled substance at d/c from ED?: No Referrals: None,Stated [Primary Care Provider] - 1-2 days Time of Disposition: 13:47
[2023-11-23 12:39] VITALS: RESP 18
[2023-11-23 14:10] VITALS: BP 136/80; PULSE 86; TEMP 99
== END 2023-11-23 14:04 | disposition home or self-care (01) ==
LOC: EC 12:02
DX: J10.1 Influenza due to other identified influenza virus with other respiratory manifestations (principal); Z86.59 Personal history of other mental and behavioral disorders; Z20.822 Contact with and (suspected) exposure to COVID-19
CPT/HCPCS: 87636; 99283

== ENCOUNTER → 2025-02-15 | Outpatient (CLI) | payer OTHER ==
[2025-02-15 15:54] LABS: Basophils # (A) 0.06 X 10*3/uL (0.00-0.10); Basophils % (A) 1.4 %; Eosinophils # (A) 0.22 X 10*3/uL (0.04-0.35); Eosinophils % (A) 5.2 %; HCT 40.6 % (37.2-46.3); HGB 13.2 g/dL (12.0-15.0); Lymphocytes # (A) 1.26 X 10*3/uL (0.90-5.00); Lymphocytes % (A) 29.5 %; MCH 30.7 pg (27.0-32.0); MCHC 32.5 g/dL (32.0-37.0); MCV 94.4 FL (80.0-97.0); Mean Platelet Volume 9.8 FL (9.5-12.2); Monocytes # (A) 0.39 X 10*3/uL (0.20-1.00); Monocytes % (A) 9.1 %; NRBC Per 100 WBC 0 X 10*3/uL (0.00-0.01); Neutrophils # (A) 2.33 X 10*3/uL (1.80-7.70); Neutrophils % (A) 54.6 %; Platelet Count 221 X 10*3/uL (140-440); RDW 12.8 % (11.5-14.5); WBC 4.27 X 10*3/uL (4.50-10.00)
[2025-02-15 16:12] LABS: ALT 30 U/L (8-44); AST 25 U/L (13-35); Albumin 4.1 g/dL (3.8-4.9); Albumin/Globulin Ratio 1.64 Ratio (1.60-3.17); Alkaline Phosphatase 78 U/L (41-126); BUN/Creat Ratio 17.17 Ratio (12.00-20.00); Bilirubin, Conjugated <0.20 mg/dL (0.20-0.40); Bilirubin,Unconjugated >0.20 mg/dL (0.20-1.00); Blood Urea Nitrogen 10.3 mg/dL (9.0-27.0); Calcium 8.9 mg/dL (8.7-10.3); Carbon Dioxide 22.7 mmol/L (21.6-31.8); Chloride 105 mmol/L (96-109); Globulin 2.5 g/dL (1.6-3.3); Glucose 85 mg/dL (70-110); Potassium 4.2 mmol/L (3.5-5.5); Sodium 137 mmol/L (135-145); T4, Free (Free Thyroxine) 1.38 ng/dL (0.80-1.80); Total Bilirubin 0.4 mg/dL (0.3-1.2); Total Protein 6.6 g/dL (6.2-8.2)
[2025-02-15 18:56] LABS: Urine Alcohol Negative (Negative); Urine Barbiturate Negative (Negative); Urine Cocaine Negative (Negative); Urine Methadone Negative (Negative); Urine Opiates Negative (Negative); Urine Phencyclidine Negative (Negative)
== END | disposition home or self-care (01) ==
LOC: LABWHC1 10:12
PROVIDERS: ATTEND Registered Nurse
DX: Z51.81 Encounter for therapeutic drug level monitoring (principal)
CPT/HCPCS: 36415; 80053; 80306; 82248; 82306; 83036; 84439; 84443; 84479; 85025; 93005